=== PATIENT | male | born 1955 | race Caucasian/White ===

== ENCOUNTER 2016-10-25 12:19 | Emergency (ER) | payer OTHER ==
[~2016-10-25] VITALS: Ht 167.6 cm; Wt 95.1 kg
[~2016-10-25 12:19] MED LIST: ALBUAER19 INH; CTP1 PO; INSDGI SQ; PRED10TA PO; PRED20TA PO; SULF800T23 PO
[2016-10-25 12:30] VITALS: TEMP 37.2; Ht 167.6 cm; Wt 95.1 kg
[2016-10-25] MEDS ORDERED: SODIUM CHLORIDE 0.9% 250ML 250 ML IV STA (12:52)
[2016-10-25] MEDS ORDERED: ONDANSETRON INJ 2 MG/ML 2 ML VIAL IV STA (12:52)
--- NOTE | 2016-10-25 12:59 | EMERGENCY ROOM VISIT NOTE ---
History Report prepared by Drew: Sofie Goodson Under the Supervision of: Dr. Barrington Rader M.D. First contact with patient: 12:49 Chief Complaint: FLANK PAIN Stated Complaint: RIGHT KIDNEY - EXTREME PAIN History of Present Illness The patient is a 61 year old male who presents to the Emergency Room with complaints of persistent right flank pain that began three days ago. He currently rates his discomfort as a 10/10 in severity. 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 He additionally reports a history of previous kidney stones. The patient states that three days ago he developed right flank pain that radiates into his back and into his right abdomen that is worsened with movement. He denies any injury to the area. The patient states that he tried taking Tramadol without relief of his symptoms. He states that he has been experiencing nausea, but denies any vomiting. The patient denies any hematuria or other urinary symptoms. He reports a normal fluid intake. The patient denies any fever. He reports that he is currently on a new autoimmune medication for his Dick's. The patient additionally states that he is currently being tapered off Prednisone. Source of History: patient Onset: three days ago Position: other (right flank) Symptom Intensity: 10/10 Timing: other (persistent) Associated Symptoms: + nausea, + abdominal pain, + back pain, No fevers, No vomiting, No urinary symptoms Review of Systems See HPI for pertinent positives & negatives. A total of 10 systems reviewed and were otherwise negative. Past Medical & Surgical Medical Problems: (1) Cholecystectomy (2) Chronic hepatitis (3) Diabetes mellitus (4) Heart disease (5) Hernia repair (6) Kidney disease Family History Heart disease Hypertension Social History Smoking Status: Never Smoker Marital Status: Housing Status: lives with significant other Occupation Status: disabled Current/Historical Medications Scheduled Aspirin (Aspirin Chewable), 81 MG PO DAILY Atorvastatin (Lipitor), 40 MG PO DAILY Azathioprine (Imuran), 50 MG PO DAILY Carvedilol (Coreg), 25 MG PO BID Ergocalciferol (Vitamin D 53873 Unit), 50,000 UNIT PO WK Fluticasone Propionate (Fluticasone Propionate), 2 SPRAYS CAIO QPM Furosemide (Lasix), 40 MG PO DAILY Hydralazine HCl (Hydralazine HCl), 25 MG PO TID Insulin Aspart (Novolog), 6 UNITS SQ TIDM Insulin Glargine (Lantus), 25 UNITS SC HS Isosorbide Mononitrate Ext Rel (Imdur Ext Rel), 30 MG PO DAILY Nitroglycerin (Nitrostat), 0.4 MG UT PRN Omeprazole (Prilosec), 20 MG PO DAILY Potassium Chloride (Micro-K Ext Rel), 10 MEQ PO DAILY Prednisone (Prednisone), 7.5 MG PO DAILY Sertraline HCl (Sertraline HCl), 200 MG PO DAILY Spironolactone (Aldactone), 25 MG PO QAM Sulfa/Trimethoprim (Bactrim Ds 800MG/160MG), 1 TAB PO 3XWK Tolterodine Tartrate (Detrol), 2 MG PO Q12 Scheduled PRN Albuterol Hfa (Ventolin Hfa), 2 PUFFS INH Q4H PRN for SOB/Wheezing Lorazepam (Ativan), 1 MG PO QID PRN for Anxiety Meclizine HCl (Meclizine HCl), 12.5 MG PO BID PRN for Dizziness or Vertigo Oxycodone Ir (Roxicodone Ir), 1-2 TAB PO Q4H PRN for Pain Tramadol (Ultram), 50 MG PO Q6H PRN for Pain Allergies Coded Allergies: JESSICA Inhibitors (Verified Allergy, Severe, anaphylaxis, 10/25/16) BEE STING (Verified Allergy, Severe, anaphylaxis, 10/25/16) Hydrochlorothiazide (Verified Allergy, Intermediate, mouth swells, 10/25/16 ) Physical Exam Vital Signs Date Time Temp Pulse Resp B/P (MAP) Pulse Ox O2 Delivery O2 Flow Rate FiO2 10/25/16 14:32 81 20 159/85 95 10/25/16 12:30 37.2 96 20 178/102 96 Room Air Physical Exam GENERAL: Patient is in no acute distress. HEENT: No acute trauma, normocephalic atraumatic, mucous membranes moist, no nasal congestion, no scleral icterus. NECK: No stridor, no adenopathy, no meningismus, trachea is midline. LUNGS: Clear to auscultation bilaterally, no wheeze, no rhonchi, breath sounds equal. HEART: Without murmurs gallops or rubs, regular rate and rhythm. ABDOMEN: Soft, nontender, bowel sounds positive, no hernias, no peritonitis. BACK: No flank discomfort with percussion EXTREMITIES: No cyanosis or edema, full range of motion of all the joints without pain or difficulty, no signs for acute trauma. NEUROLOGIC: Oriented x 3, no acute motor or sensory deficits, no focal weakness. SKIN: No rash, no jaundice, no diaphoresis. Medical Decision & Procedures ER Provider Diagnostic Interpretation: CT results as stated below per my review and radiologist interpretation: ABD/PELVIS WITHOUT FOR STONE CLINICAL HISTORY: 61 years-old Male presenting with EVALUATE FLANK PAIN/HEMATURIA. TECHNIQUE: Multidetector CT of the abdomen and pelvis was performed without the use of intravenous contrast. IV contrast: None. A dose lowering technique was used consistent with the principles of ALARA (as low as reasonably achievable). COMPARISON: 03/27/2020. CT DOSE (mGy.cm): The estimated cumulative dose is 1596.87 mGy.cm. 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 Cholecystectomy clips. Vasectomy clips. Lung bases: Right ventricular lead noted. Mildly enlarged heart. Lung bases clear. No pericardial or pleural effusion. Liver: Normal morphology. Severe hepatic steatosis. Biliary: No intrahepatic or extrahepatic biliary ductal dilatation. Gallbladder surgically absent. Pancreas: Normal. Spleen: Normal. Adrenal glands: Normal. Kidneys and ureters: Nonobstructing 2 mm calculus in the interpolar region of the right kidney. No left nephrolithiasis. No hydronephrosis. Normal ureters. Bladder: Incompletely evaluated secondary to underdistention. Pelvic organs: Prostate enlargement likely secondary to benign prostatic hyperplasia. Bowel: Normal appendix. No bowel obstruction. Peritoneal cavity: No free fluid or intraperitoneal gas. Vasculature: Atherosclerosis of the normal caliber abdominal aorta. Lymph nodes: No enlarged lymph nodes in the abdomen or pelvis. Abdominal wall: Small fat-containing left inguinal hernia. Small fat-containing umbilical hernia. Musculoskeletal: Degenerative changes of the spine. IMPRESSION: 1. 2 mm nonobstructing right renal calculus. Nodular process. 2. Prostatomegaly. 3. Severe hepatic steatosis. Electronically signed by: William Garcia M.D. 10/25/2016 1:52 PM Dictated Date/Time: 10/25/2016 1:47 PM Laboratory Results 10/25/16 13:16 Red Blood Count 4.09, Mean Corpuscular Volume 90.0, Mean Corpuscular Hemoglobin 32.5, Mean Corpuscular Hemoglobin Concent 36.1, Mean Platelet Volume 9.5, Neutrophils (%) (Auto) 82.7, Lymphocytes (%) (Auto) 7.8, Monocytes (%) (Auto) 6.1, Eosinophils (%) (Auto) 2.6, Basophils (%) (Auto) 0.4, Neutrophils # (Auto) 6.49, Lymphocytes # (Auto) 0.61, Monocytes # (Auto) 0.48, Eosinophils # (Auto) 0.20, Basophils # (Auto) 0.03 10/25/16 13:05 Test 10/25/16 12:40 10/25/16 13:05 10/25/16 13:16 Urine Color YELLOW Urine Appearance CLEAR (CLEAR) Urine pH 5.5 (4.5-7.5) Urine Specific [place] 1.024 (1.000-1.030) Urine Protein 1+ (NEG) Urine Glucose (UA) 3+ (NEG) Urine Ketones NEG (NEG) Urine Occult Blood NEG (NEG) Urine Nitrite NEG (NEG) Urine Bilirubin NEG (NEG) Urine Urobilinogen NEG (NEG) Urine Leukocyte Esterase NEG (NEG) Urine WBC (Auto) 1-5 /hpf (0-5) Urine RBC (Auto) 0-4 /hpf (0-4) Urine Hyaline Casts (Auto) 5-10 /lpf (0-5) Urine Epithelial Cells (Auto) 20-30 /lpf (0-5) Urine Bacteria (Auto) NEG (NEG) Anion Gap 7.0 mmol/L (3-11) Est Creatinine Clear Calc Drug Dose 66.0 ml/min Estimated GFR () 69.2 Estimated GFR (Non- 59.7 BUN/Creatinine Ratio 13.2 (10-20) Calcium Level 9.4 mg/dl (8.5-10.1) Total Bilirubin 1.0 mg/dl (0.2-1) Aspartate Amino Transf (AST/SGOT) 18 U/L (15-37) Alanine Aminotransferase (ALT/SGPT) 31 U/L (12-78) Alkaline Phosphatase 60 U/L (45-117) Total Protein 7.0 gm/dl (6.4-8.2) Albumin 3.6 gm/dl (3.4-5.0) Globulin 3.4 gm/dl (2.5-4.0) Albumin/Globulin Ratio 1.1 (0.9-2) Lipase 198 U/L (73-393) White Blood Count 7.84 K/uL (4.8-10.8) Red Blood Count 4.09 M/uL (4.7-6.1) Hemoglobin 13.3 g/dL (14.0-18.0) Hematocrit 36.8 % (42-52) Mean Corpuscular Volume 90.0 fL (80-100) Mean Corpuscular Hemoglobin 32.5 pg (25-34) Mean Corpuscular Hemoglobin Concent 36.1 g/dl (32-36) Platelet Count 147 K/uL (130-400) Mean Platelet Volume 9.5 fL (7.4-10.4) Neutrophils (%) (Auto) 82.7 % Lymphocytes (%) (Auto) 7.8 % Monocytes (%) (Auto) 6.1 % Eosinophils (%) (Auto) 2.6 % Basophils (%) (Auto) 0.4 % Neutrophils # (Auto) 6.49 K/uL (1.4-6.5) Lymphocytes # (Auto) 0.61 K/uL (1.2-3.4) Monocytes # (Auto) 0.48 K/uL (0.11-0.59) Eosinophils # (Auto) 0.20 K/uL (0-0.5) Basophils # (Auto) 0.03 K/uL (0-0.2) RDW Standard Deviation 43.2 fL (36.4-46.3) RDW Coefficient of Variation 13.1 % (11.5-14.5) Immature Granulocyte % (Auto) 0.4 % Immature Granulocyte # (Auto) 0.03 K/uL (0.00-0.02) Laboratory results reviewed by me. Medications Administered Medications (Trade) Dose Ordered Sig/Francisco Javier Route Start Time Stop Time Status Last Admin Dose Admin Ondansetron HCl (Zofran Inj) 4 mg NOW STAT IV 10/25/16 12:52 10/25/16 12:56 DC 10/25/16 13:15 4 MG Morphine Sulfate (MoRPHine SULFATE INJ) 4 mg Q15M PRN IV 10/25/16 13:00 10/25/16 14:41 DC 10/25/16 13:16 4 MG Sodium Chloride 250 ml @ 999 mls/hr Q16M STAT IV 10/25/16 12:52 10/25/16 13:07 DC 10/25/16 13:15 999 MLS/HR ED Course 1249: The patient was evaluated in room A11B. A complete history and physical exam was performed. 1252: Ordered Sodium Chloride 250 ml @ 999 mls/hr IV, Zofran Inj 4 mg IV. 1300: Ordered Morphine Sulfate 4 mg IV. 1417: I reevaluated the patient and he is doing well. I discussed all the exam findings with him and I discussed the treatment plan. He verbalized complete understanding and agreement. He is ready to go home shortly. Medical Decision The patient is a 61 year old male who presents to the ED with complaints of right flank pain. Differential diagnoses considered include Renal colic, hydronephrosis, renal hematoma, renal failure, UTI, pyelonephritis, musculoskeletal pain. There is no leukocytosis or concerning anemia. No significant electrolyte abnormality or kidney failure. There is no hepatitis or pancreatitis. Urinalysis does not show infection or significant hematuria. Abdominal and pelvis CT shows a stone within the right kidney but no hydronephrosis or ureteral stone. No other pathology by CT that would explain his discomfort. The patient was given a small amount of IV saline, received IV morphine and IV Zofran, he feels improved. The patient's pain worsens with certain movements. I suspect the pain is musculoskeletal. He was reassured. He was given a small prescription of oxycodone for severe pain as tramadol has not helped. Heat to the area was suggested. If he worsens, he can return. [place] Drug Monitoring Program Search Results: patient reviewed within database, no issues identified Impression Primary Impression: Right flank pain Scribe Attestation The scribe's documentation has been prepared under my direction and personally reviewed by me in its entirety. I confirm that the note above accurately reflects all work, treatment, procedures, and medical decision making performed by me. Departure Information Dispostion Home / Self-Care Prescriptions Oxycodone Ir (Roxicodone Ir) 5 Mg Tab 1-2 TAB PO Q4H Y for Pain, #10 TAB Prov: Barrington Rader M.D. 10/25/16 Referrals Tan Dhaliwal MD (PCP) Forms HOME CARE DOCUMENTATION FORM, IMPORTANT VISIT INFORMATION Patient Instructions [facility] Additional Instructions tramadol for pain as before may use oxy ir 1 tab as needed for severe pain follow with sari howell for a recheck return if worsening or have fever or vomiting imaging and labs look ok today no stone passing by our testing no urine infection
[2016-10-25] MEDS ORDERED: MoRPHine SULFATE 4 MG/ML 1 ML CARP\\VIAL IV PRN (13:00)
[2016-10-25] MEDS ORDERED: VNTHFA/IN INH (13:01)
[2016-10-25] MEDS ORDERED: INSDGI SC (13:01)
[2016-10-25] MEDS ORDERED: NVLG SQ (13:07)
[2016-10-25] MEDS ORDERED: PRD/1 PO (13:07)
[2016-10-25] MEDS ORDERED: SULF800T23 PO (13:11)
[2016-10-25] MEDS ORDERED: TRAM-10 PO (13:11)
[2016-10-25] MEDS ORDERED: ERGO500037 PO (13:11)
[2016-10-25] MEDS ORDERED: PRLSR20 PO (13:11)
[2016-10-25] MEDS ORDERED: AZAT50TA17 PO (13:11)
[2016-10-25] MEDS ORDERED: PRED-301 PO (13:11)
[2016-10-25] MEDS ORDERED: DTR2 PO (13:11)
[2016-10-25 13:13] LABS: URINE APPEARANCE CLEAR (CLEAR); URINE BILIRUBIN NEG (NEG); URINE COLOR YELLOW; URINE EPITHELIAL CELL AUTO 20-30 /lpf (0-5); URINE NITRITE NEG (NEG); URINE PH 5.5 (4.5-7.5); URINE SPECIFIC GRAVITY 1.024 (1.000-1.030); UROBILINOGEN NEG (NEG); ZZUR CULT IF INDIC CLEAN CATCH NO
[2016-10-25 13:15] LABS: MANUAL MICROSCOPIC REQUIRED? NO; REVIEW REQ? NO
[2016-10-25 13:27] LABS: BASO % 0.4 %; BASO ABS # 0.03 K/uL (0-0.2); COMPLETE YES; EOS % 2.6 %; HEMATOCRIT 36.8 % (42-52); IG% 0.4 %; LYMPH % 7.8 %; LYMPH ABS # 0.61 K/uL (1.2-3.4); MEAN CORPUSCULAR HEMOGLOBIN 32.5 pg (25-34); MEAN CORPUSCULAR HGB CONC 36.1 g/dl (32-36); MEAN PLATELET VOLUME 9.5 fL (7.4-10.4); MONO % 6.1 %; NEUT % 82.7 %; PLATELET COUNT 147 K/uL (130-400); RED BLOOD COUNT 4.09 M/uL (4.7-6.1); WHITE BLOOD COUNT 7.84 K/uL (4.8-10.8)
[2016-10-25 13:41] LABS: BUN/CREATININE RATIO 13.2 (10-20); CALCIUM 9.4 mg/dl (8.5-10.1); CREATININE 1.3 mg/dl (0.60-1.40); POTASSIUM 3.1 mmol/L (3.5-5.1)
[2016-10-25 13:44] LABS: ALB/GLOB RATIO 1.1 (0.9-2)
--- NOTE | 2016-10-25 13:53 | DIAGNOSTIC IMAGING REPORT ---
ABD/PELVIS WITHOUT FOR STONE CLINICAL HISTORY: 61 years-old Male presenting with EVALUATE FLANK PAIN/HEMATURIA. TECHNIQUE: Multidetector CT of the abdomen and pelvis was performed without the use of intravenous contrast. IV contrast: None. A dose lowering technique was used consistent with the principles of ALARA (as low as reasonably achievable). COMPARISON: 03/27/2020. CT DOSE (mGy.cm): The estimated cumulative dose is 1596.87 mGy.cm. 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 Cholecystectomy clips. Vasectomy clips. Lung bases: Right ventricular lead noted. Mildly enlarged heart. Lung bases clear. No pericardial or pleural effusion. Liver: Normal morphology. Severe hepatic steatosis. Biliary: No intrahepatic or extrahepatic biliary ductal dilatation. Gallbladder surgically absent. Pancreas: Normal. Spleen: Normal. Adrenal glands: Normal. Kidneys and ureters: Nonobstructing 2 mm calculus in the interpolar region of the right kidney. No left nephrolithiasis. No hydronephrosis. Normal ureters. Bladder: Incompletely evaluated secondary to underdistention. Pelvic organs: Prostate enlargement likely secondary to benign prostatic hyperplasia. Bowel: Normal appendix. No bowel obstruction. Peritoneal cavity: No free fluid or intraperitoneal gas. Vasculature: Atherosclerosis of the normal caliber abdominal aorta. Lymph nodes: No enlarged lymph nodes in the abdomen or pelvis. Abdominal wall: Small fat-containing left inguinal hernia. Small fat-containing umbilical hernia. Musculoskeletal: Degenerative changes of the spine. IMPRESSION: 1. 2 mm nonobstructing right renal calculus. Nodular process. 2. Prostatomegaly. 3. Severe hepatic steatosis. Electronically signed by: William Garcia M.D. 10/25/2016 1:52 PM Dictated Date/Time: 10/25/2016 1:47 PM
[2016-10-25] MEDS ORDERED: OXYC1TAB3 PO (14:23)
[2016-10-25 14:32] VITALS: BP 159/85; PULSE 81; O2SAT 95
[2016-10-25] MEDS ORDERED: NTRGSL/4 UT (15:00)
[2016-10-25] MEDS ORDERED: APR/25 PO (17:04)
[2016-10-25] MEDS ORDERED: POTA10CA28 PO (17:04)
[2016-10-25] MEDS ORDERED: ATV/1 PO (17:04)
[2016-10-25] MEDS ORDERED: FRS/40 PO (19:24)
[2016-10-25] MEDS ORDERED: ATOR-24 PO (19:24)
[2016-10-25] MEDS ORDERED: SPIR25TA PO (19:24)
[2016-10-25] MEDS ORDERED: ZLF/100 PO (19:24)
[2016-10-25] MEDS ORDERED: ISOS30TA35 PO (19:36)
[2016-10-25] MEDS ORDERED: FLNIN/ NAE (19:36)
[2016-10-25] MEDS ORDERED: MECL1TAB40 PO (19:36)
[2016-10-25] MEDS ORDERED: ASPCH81X PO (22:32)
[2016-10-25] MEDS ORDERED: CARV25TA2 PO (22:33)
== END 2016-10-25 14:34 | disposition home or self-care (01) ==
LOC: C.EDB 12:21 → C.EDA 14:34
DX: R10.9 Unspecified abdominal pain (principal); M31.31 Wegener's granulomatosis with renal involvement; Z87.442 Personal history of urinary calculi; E11.9 Type 2 diabetes mellitus without complications; I51.9 Heart disease, unspecified; K73.9 Chronic hepatitis, unspecified; Z82.49 Family history of ischemic heart disease and other diseases of the circulatory system; Z79.82 Long term (current) use of aspirin; Z79.4 Long term (current) use of insulin; Z79.899 Other long term (current) drug therapy

== ENCOUNTER 2021-02-07 17:02 | Inpatient (IN) ==
--- NOTE | 2021-02-07 17:21 | Emergency Department Note ---
Impression & Plan SOB (shortness of breath), WARD (dyspnea on exertion), Abnormal echocardiogram ED Provider Note NAME: LLOYD ARNETT AGE: 65 SEX: M : 1955 ARRIVES VIA: Ambulance INFORMANT: Patient, ED PROVIDER(S): Artuor Ortega DO CHIEF COMPLAINT: Shortness of breath HPI: The patient is a 65-year-old male who was sent to the emergency department for an evaluation of difficulty breathing. The patient states that he has a history of difficulty breathing in the past. He said chronic difficulty breathing over the last few years. The patient was seen at the internal medicine clinic today because of his ongoing shortness of breath. He has a history of systolic heart failure diabetes as well as sarcoid and hypertension. He has had a worsening dyspnea on exertion for at least the last 2 to 3 months. The patient he thinks it started to worsen over the last few weeks as well. He is not vaccinated against Covid but denies have any fever or cough. He states he is been compliant with his usual outpatient medications. The patient states that he had an echocardiogram done while he was over the clinic and it was found to have a decrease in his ejection fraction compared to baseline. For this reason he was sent to the emergency department by ambulance for further evaluation. The patient also complains of chest pain. He has noticed some lower extremity swelling. He denies having any diarrhea or nausea. ROS: See above HPI for pertinent positives & negatives. A total of 10 systems reviewed and were otherwise negative. PAST MEDICAL HISTORY: See Below PAST SURGICAL HISTORY: See Below FAMILY HISTORY: See Below SOCIAL HISTORY: See Below HOME MEDICATIONS: See Below ALLERGIES: See Below VITALS: See Below PHYSICAL EXAMINATION: GENERAL: Patient is awake alert in no acute distress patient is resting comfortably and showing no signs of anxiety EYES: The conjunctivae are clear. The pupils are round and reactive. EARS, NOSE, MOUTH AND THROAT: The nose is without any evidence of any deformity. Mucous membranes are moist. Tongue is midline. NECK: The neck is nontender and supple. RESPIRATORY: Diminished breath sounds are noted throughout. There is no wheezing but there was some rales and conversational dyspnea. CARDIOVASCULAR: Regular rate and rhythm noted there no murmurs rubs or gallops normal S1 normal S2. GASTROINTESTINAL: The abdomen is soft. Abdomen is nontender. MUSCULOSKELETAL/EXTREMITIES: There is no evidence of gross deformity full range of motion is noted in the hips and shoulders. SKIN: Pedal edema was noted bilaterally. NEUROLOGIC: Patient is awake alert and oriented x3 MEDICAL DECISION MAKING: The patient is a 65-year-old male who presented to emergency department for an evaluation of difficulty breathing. The patient has a history of CHF because of nonischemic cardiomyopathy but also has diabetes and obstructive sleep apnea. The patient was seen at his primary care physician's office and was found to have significant difficulty breathing. He had an echocardiogram which showed a decrease in his ejection fraction. This was not clear as to the cause but it was felt to be possibly due to ischemia. The patient was sent to the emergency department for further evaluation. I discussed case with the on-call [facility]. They will evaluate the patient in the emergency department for further management and disposition. Triage Nursing notes reviewed. Prior medical records reviewed Vital Signs: reviewed and remarkable for elevated blood pressure. Differential diagnosis: Reactive airway disease, pneumonia, pneumothorax, COPD, CHF, infections, cardiac ischemia, pulmonary embolism, musculoskeletal, gastrointestinal, as well as other pathologies. ER treatment provided: See below Diagnostics interpreted by me: ECG: EKG was obtained in the emergency department. My interpretation is normal sinus rhythm at 81 bpm. There is no ectopy. Nonspecific lateral ST segment ab normalities with high lateral T wave versions were noted. This was compared to a tracing from January [id number]. No changes were noted. Cardiac Monitoring: An order was placed for continuous cardiac monitoring. The monitor shows a rate of 90 bpm with sinus rhythm. Laboratory studies: As stated above and show below. Imaging studies: See below Consultation(s): I discussed this case with Mariela who was full fashioned garment knitter for the [facility]. 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 Surgical History History of bronchoscopy History of cardiac cath 2015 History of cholecystectomy Family History Sister Cancer esophagus Social History Smoking Status: Never smoker Hx Alcohol Use: No Hx Substance Use: No Preferred Language: Bulgarian Communication Ability: Effective Four H Agent Required: No Beliefs That Will Affect Care: None Current Living Situation: Spouse and Family Feels Safe at Home: Yes Assistive Devices: None Allergies Allergies Allergy/AdvReac Type Severity Reaction Status Date / Time JESSICA Inhibitors Allergy Severe anaphylaxis Verified 02/07/21 19:00 bee venom protein (honey bee) Allergy Severe anaphylaxis Verified 02/07/21 19:00 hydrochlorothiazide Allergy Intermediate mouth Verified 02/07/21 19:00 swells doxazosin [From Cardura] AdvReac MUSCLE Verified 02/07/21 19:01 ACHES, DIZZY, CHEST PAIN empagliflozin AdvReac DEHYDRATION Verified 02/07/21 19:02 [From Solmentum] Home Meds Home Medications Medication Instructions Recorded Confirmed azathioprine 50 mg tablet 50 mg PO BID 01/21/18 02/07/21 carvedilol 25 mg tablet 25 mg PO BID 01/21/18 02/07/21 hydralazine 50 mg tablet 50 mg PO TID 01/21/18 02/07/21 lorazepam 1 mg tablet 1 mg PO DAILY PRN 01/21/18 02/07/21 nitroglycerin 0.4 mg sublingual 0.4 mg SUBLINGUAL DIRECTED PRN 01/21/18 02/07/21 tablet (Nitrostat) sertraline 100 mg tablet 200 mg PO DAILY 01/21/18 02/07/21 sulfamethoxazole 800 1 tab PO 3XWK 01/21/18 02/07/21 mg-trimethoprim 160 mg tablet aspirin 81 mg tablet,delayed 81 mg PO QPM 01/23/18 02/07/21 release meclizine 12.5 mg tablet 12.5 mg PO BID PRN 01/23/18 02/07/21 omeprazole 20 mg capsule,delayed 20 mg PO BID 01/23/18 02/07/21 release aspirin 81 mg tablet 324 mg PO .TODAY 02/07/21 02/07/21 buspirone 15 mg tablet 15 mg PO DAILY PRN 02/07/21 02/07/21 insulin human U-100 NPH-regulr 44 unit SUBCUT .QSUPPER 02/07/21 02/07/21 70-30 mix 100 unit/mL subcutaneous susp (Novolin 70/30 U-100 Insulin) insulin human U-100 NPH-regulr 50 unit SUBCUT QAM 02/07/21 02/07/21 70-30 mix 100 unit/mL subcutaneous susp (Novolin 70/30 U-100 Insulin) nitroglycerin 0.2 mg/hr 1 patch TRANSDERMAL DAILY 02/07/21 02/07/21 transdermal 24 hour patch torsemide 20 mg tablet 20 mg PO DAILY 02/07/21 02/07/21 Results & Data (ED) Vital Signs Vital Signs - 24 hr 02/07/21 17:13 Temperature 36.9 C Temperature Source Oral Pulse Rate 85 Pulse Rate [Apical] 85 Respiratory Rate 20 Respiratory Effort / Characteristics Non-Labored Spontaneous Respiratory Depth Normal Respiratory Pattern Regular Blood Pressure 171/90 H Blood Pressure [Right Arm] 171/90 H Blood Pressure Mean 117 Blood Pressure Mean [Right Arm] 117 Pulse Oximetry 98 Oxygen Delivery Method Room Air Sepsis Recent Fever Within 48 Hours No Sepsis New/Unexplained Change in Mental Status No Sepsis Action Taken by Nursing No Action Required Home Medications Current Medication List: was personally reviewed by me Laboratory Data Attestation: I reviewed the patient's lab results. Result diagrams: 02/07/21 17:16 02/07/21 17:16 Lab Results 02/07/21 02/07/21 02/07/21 Range/Units 17:16 17:16 17:16 WBC 8.58 (4.8-10.8) K/uL RBC 4.77 (4.7-6.1) M/uL Hgb 13.9 L (14.0-18.0) g/dL Hct 40.6 L (42-52) % MCV 85.1 (80-100) fL MCH 29.1 (25-34) pg MCHC 34.2 (32-36) g/dL RDW Std Deviation 43.1 (36.4-46.3) fL RDW Coeff of Salud 13.9 (11.5-14.5) % Plt Count 209 (130-400) K/uL MPV 10.7 H (7.4-10.4) fL Immature Gran % (Auto) 0.1 % Neut % (Auto) 76.9 % Lymph % (Auto) 14.2 % [place] % (Auto) 6.5 % Eos % (Auto) 2.0 % Baso % (Auto) 0.3 % Neut # (Auto) 6.59 H (1.4-6.5) K/uL Lymph # (Auto) 1.22 (1.2-3.4) K/uL [place] # (Auto) 0.56 (0.11-0.59) K/uL Eos # (Auto) 0.17 (0-0.5) K/uL Baso # (Auto) 0.03 (0-0.2) K/uL Immature Gran # (Auto) 0.01 (0.00-0.02) K/uL PT 9.9 (9.0-12.0) Seconds INR 1.0 (0.9-1.1) APTT 24.7 (21.0-31.0) Seconds PTT Ratio 0.9 VBG pH (7.36-7.41) VBG pCO2 (38-50) mmHg VBG pO2 mmHg VBG HCO3 mmol/L VBG O2 Saturation % VBG Base Excess mEq/L Barometric Pressure mm/Hg Sodium 138 (136-145) mmol/L Potassium 3.2 L (3.5-5.1) mmol/L Chloride 107 (98-107) mmol/L Carbon Dioxide 22 (21-32) mmol/L Anion Gap 9.0 (3-11) BUN 22 H (7-18) mg/dl Creatinine 1.46 H (0.6-1.4) mg/dl Est Cr Clr Drug Dosing 59.9 ml/min Est GFR ( Amer) 58.5 ml/min Est GFR (Non-Af Amer) 50.5 ml/min BUN/Creatinine Ratio 14.8 (10-20) Glucose 204 H (70-99) mg/dl Calcium 9.3 (8.5-10.1) mg/dl Magnesium 2.1 (1.8-2.4) mg/dl Total Bilirubin 0.5 (0.2-1) mg/dl AST 23 (15-37) U/L ALT 34 (12-78) Alkaline Phosphatase 76 (45-117) U/L Troponin I 0.027 (0-0.045) ng/ml NT-Pro-B Natriuret Pep 2315 H (0-900) pg/ml Total Protein 7.2 (6.4-8.2) gm/dl Albumin 3.5 (3.4-5.0) gm/dl Globulin 3.7 (2.5-4.0) gm/dl Albumin/Globulin Ratio 0.9 (0.9-2) Specimen Hemolysis SARS-CoV-2, RNA, NAAT (NEGATIVE) 02/07/21 02/07/21 Range/Units 17:16 18:32 WBC (4.8-10.8) K/uL RBC (4.7-6.1) M/uL Hgb (14.0-18.0) g/dL Hct (42-52) % MCV (80-100) fL MCH (25-34) pg MCHC (32-36) g/dL RDW Std Deviation (36.4-46.3) fL RDW Coeff of Salud (11.5-14.5) % Plt Count (130-400) K/uL MPV (7.4-10.4) fL Immature Gran % (Auto) % Neut % (Auto) % Lymph % (Auto) % [place] % (Auto) % Eos % (Auto) % Baso % (Auto) % Neut # (Auto) (1.4-6.5) K/uL Lymph # (Auto) (1.2-3.4) K/uL [place] # (Auto) (0.11-0.59) K/uL Eos # (Auto) (0-0.5) K/uL Baso # (Auto) (0-0.2) K/uL Immature Gran # (Auto) (0.00-0.02) K/uL PT (9.0-12.0) Seconds INR (0.9-1.1) APTT (21.0-31.0) Seconds PTT Ratio VBG pH 7.57 H (7.36-7.41) VBG pCO2 26 L (38-50) mmHg VBG pO2 37 mmHg VBG HCO3 23 mmol/L VBG O2 Saturation 77.1 % VBG Base Excess 2.1 mEq/L Barometric Pressure 729.7 mm/Hg Sodium (136-145) mmol/L Potassium (3.5-5.1) mmol/L Chloride (98-107) mmol/L Carbon Dioxide (21-32) mmol/L Anion Gap (3-11) BUN (7-18) mg/dl Creatinine (0.6-1.4) mg/dl Est Cr Clr Drug Dosing ml/min Est GFR ( Amer) ml/min Est GFR (Non-Af Amer) ml/min BUN/Creatinine Ratio (10-20) Glucose (70-99) mg/dl Calcium (8.5-10.1) mg/dl Magnesium (1.8-2.4) mg/dl Total Bilirubin (0.2-1) mg/dl AST (15-37) U/L ALT (12-78) Alkaline Phosphatase (45-117) U/L Troponin I (0-0.045) ng/ml NT-Pro-B Natriuret Pep (0-900) pg/ml Total Protein (6.4-8.2) gm/dl Albumin (3.4-5.0) gm/dl Globulin (2.5-4.0) gm/dl Albumin/Globulin Ratio (0.9-2) Specimen Hemolysis SARS-CoV-2, RNA, NAAT NEGATIVE (NEGATIVE) Administered Medications Discontinued Medications Furosemide (Furosemide Inj 20 Mg/2 Ml Vial) 20 mg IV ONE STA Stop: 02/07/21 20:24 Last Admin: 02/07/21 21:14 Dose: 20 mg Documented by: [id number] Furosemide (Furosemide 40 Mg/4 Ml Vial) Confirm Administered Dose 40 mg IV .STK- MED ONE Stop: 02/07/21 21:13 Last Admin: 02/07/21 21:15 Dose: Not Given Documented by: [id number] Hydralazine HCl (Hydralazine Tab 50 Mg Tab) 50 mg PO ONE ONE Stop: 02/07/21 19:58 Last Admin: 02/07/21 21:14 Dose: 50 mg Documented by: [id number] Potassium Chloride (Potassium Chloride Crtab 20 Meq Tabcr) 40 meq PO NOW STA Stop: 02/07/21 20:32 Last Admin: 02/07/21 21:14 Dose: 40 meq Documented by: [id number] Trimethoprim/Sulfamethoxazole (Sulfamethoxazole/Trimethoprim Ds 800/160mg Tab) 1 tab PO NOW STA Stop: 02/07/21 20:42 Last Admin: 02/07/21 21:14 Dose: 1 tab Documented by: [id number] Imaging Data Radiologist's Impression: Chest X-Ray 02/07/21 17:10 XR chest 1V portable CLINICAL HISTORY: Dyspnea TECHNIQUE: Single frontal radiograph of the chest was obtained. Comparison: Comparison is made to chest one view 01/20/2018 FINDINGS: Single lead pacemaker defibrillator is unchanged. Cardiomegaly is noted. The lungs are clear. No evidence of pleural effusion or pneumothorax. IMPRESSION: Stable cardiomegaly. No acute abnormality. ACT 112: Negative or not required by law. Electronically signed by: Kyle Becerra M.D. 02/07/2021 6:00 PM Discharge Plan Visit Data Chief Complaint: Shortness of Breath/Dyspnea Stated Complaint: SOB ED Provider: Arturo Ortega Discharge Problem: SOB (shortness of breath), WARD (dyspnea on exertion), Abnormal echocardiogram Patient Disposition: Admitted As Inpatient Discharge Instructions Interventions: ED Discharge Assessment Last Done: 02/07/21 20:45
[2021-02-07 17:32] LABS: Basophils # (auto) 0.03 K/uL (0-0.2); Basophils % (auto) 0.3 %; Eosinophils # (auto) 0.17 K/uL (0-0.5); Hematocrit (blood only) 40.6 % (42-52); Hemoglobin 13.9 g/dL (14.0-18.0); Immature Granulocytes # (auto) 0.01 K/uL (0.00-0.02); Immature Granulocytes % (auto) 0.1 %; Lymphocytes # (auto) 1.22 K/uL (1.2-3.4); Lymphocytes % (auto) 14.2 %; Mean Corpuscular Hemoglobin 29.1 pg (25-34); Mean Corpuscular Hgb Conc 34.2 g/dL (32-36); Mean Corpuscular Volume 85.1 fL (80-100); Mean Platelet Volume 10.7 fL (7.4-10.4); Monocytes # (auto) 0.56 K/uL (0.11-0.59); Monocytes % (auto) 6.5 %; Neutrophils # (auto) 6.59 K/uL (1.4-6.5); Neutrophils % (auto) 76.9 %; Platelet Count 209 K/uL (130-400); RDW Coefficient of Variation 13.9 % (11.5-14.5); RDW Standard Deviation 43.1 fL (36.4-46.3); Red Blood Count 4.77 M/uL (4.7-6.1); White Blood Count 8.58 K/uL (4.8-10.8)
[2021-02-07 17:33] LABS: Base Excess VBG 2.1 mEq/L; Oxygen Saturation VBG 77.1 %; pH VBG 7.57 (7.36-7.41)
[2021-02-07 17:42] LABS: Partial Thromboplastin Ratio 0.9; Partial Thromboplastin Time 24.7 Seconds (21.0-31.0); Prothrombin Time 9.9 Seconds (9.0-12.0)
[2021-02-07 17:52] LABS: Albumin Level 3.5 gm/dl (3.4-5.0); BUN Creatinine Ratio 14.8 (10-20); Calcium 9.3 mg/dl (8.5-10.1); Creatinine Clr Calc Pharmacy 59.9 ml/min; Est GFR (African American) 58.5 ml/min; Est GFR (Non-African American) 50.5 ml/min; Magnesium 2.1 mg/dl (1.8-2.4); Potassium 3.2 mmol/L (3.5-5.1)
--- NOTE | 2021-02-07 18:02 | XRay Report ---
XR chest 1V portable CLINICAL HISTORY: Dyspnea TECHNIQUE: Single frontal radiograph of the chest was obtained. Comparison: Comparison is made to chest one view 01/20/2018 FINDINGS: Single lead pacemaker defibrillator is unchanged. Cardiomegaly is noted. The lungs are clear. No evid ence of pleural effusion or pneumothorax. IMPRESSION: Stable cardiomegaly. No acute abnormality. ACT 112: Negative or not required by law. Electronically signed by: Kyle Becerra M.D. 02/07/2021 6:00 PM
[2021-02-07 18:24] LABS: Albumin Globulin Ratio 0.9 (0.9-2); Bilirubin,Total 0.5 mg/dl (0.2-1); Globulin 3.7 gm/dl (2.5-4.0); Total Protein 7.2 gm/dl (6.4-8.2); Troponin I 0.027 ng/ml (0-0.045)
--- NOTE | 2021-02-07 19:25 | History & Physical Report ---
Date of Service February 07, 2021 Assessment & Plan (1) Exertional shortness of breath: (2) Nonischemic cardiomyopathy: Plan: Patient is 65-year-old male with PMH sarcoidosis, granulomatosis with polyangiitis, chronic systolic CHF, EF 30%, s/p ICD, paroxysmal V. tach, DM II, HTN, GARDENIA, obesity, depression, anxiety presented to ER for exertional shortness of breath and chest tightness. Patient reports chronic exertional shortness of breath at baseline. He reports for the past month has had increased exertional shortness of breath. Patient states approximately 1 month ago he was started on Cardura and he feels that his symptoms increased at that time. Patient also reports approximately 1-3 times a month he will have sharp chest pain which resolves at rest. He states since starting the Cardura he felt he was having more frequent chest tightness and also having aching of lower legs. He also reports chronic dizziness with standing at baseline however felt like that was also increased over the past month. His Cardura has since been discontinued and he reports decreased dizziness, and resolution of chest tightness and aching of lower legs. He was seen at PCPs office as well as cardiology office today and was noted to have shortness of breath without hypoxia. Since being in ER patient has been sitting and denies any increase shortness of breath and feels like his breathing is at baseline. Denies any chest pain or tightness. Denies any increased lower extremity edema or change in weight He reports will have rare nonproductive cough at baseline and denies any increased cough or any hemoptysis. Denies fever/chills, diaphoresis, N/V/D/C, OLIVERA, syncope, vision changes, neck pain, orthopnea, palpitations, sore throat, choking, otalgia, rhinorrhea, abdominal pain, paresthesias, weakness, extremity weakness, extremity edema, rashes, urinary symptoms. In ER pt afebrile, BP 171/90, P: 85, R: 20, 98% on RA. Initial troponin 0.027. CXR without acute changes. Negative COVID EKG changes in clinic with new t wave inversion anterolateral lead and had outpatient echo with preliminary reading diffuse hypokinesis that was similar to prior and possible inferior wall hypokinesis DDx: angina, ACS, lung etiology. Does not appear volume overloaded at this time Repeat EKG in am Will trend troponin lipid panel, continue statin Continue aspirin, carvedilol, nitro patch, Cardiology consult May need to consider CT chest NPO midnight Start Heparin Give one dose lasix IV and monitor I's &O's Continue torsemide CBC, BMP in am (3) Hypokalemia: Plan: K: 3.2. Magnesium: 2.1 Replace and monitor (4) HTN (hypertension): Plan: Continue carvedilol, hydralazine (5) Diabetes mellitus, type II: Plan: A1c: 8.3 in 01/12/2021 Hold home insulin Basal bolus insulin per protocol (6) Granulomatosis with polyangiitis: Plan: History granulomatosis with polyangiitis, History sarcoidosis Continue Imuran and Bactrim mon, wed, fri If cardiac work-up unremarkable, may need to consider CT chest (7) GARDENIA (obstructive sleep apnea): Plan: CPAP with 2L O2 HS (8) Depression with anxiety: Plan: Continue sertraline DVT Prophylaxis On IV Heparin Full Code as per discussion with pt Follows with Dr Dhaliwal for routine care Pt was seen and care coordinated with Dr Orozco. See addendum History of Present Illness Chief Complaint: SOB Primary Care Provider: Tan Dhaliwal MD Patient is 65-year-old male with PMH sarcoidosis, granulomatosis with polyangiitis, chronic systolic CHF, EF 30%, s/p ICD, paroxysmal V. tach, DM II, HTN, GARDENIA, obesity, depression, anxiety presented to ER for shortness of breath. Patient reports chronic exertional shortness of breath at baseline. He reports for the past month has had increased exertional shortness of breath. Patient states approximately 1 month ago he was started on Cardura and he feels that his symptoms increased at that time. Patient also reports approximately 1-3 times a month he will have sharp chest pain which resolves at rest. He states since starting the Cardura he felt he was having more frequent chest tightness and also having aching of lower legs. He also reports chronic dizziness with standing at baseline however felt like that was also increased over the past month. His Cardura has since been discontinued and he reports decreased dizziness, and resolution of chest tightness and aching of lower legs. He was seen at PCPs office as well as cardiology office today and was noted to have shortness of breath without hypoxia. At cardiology office he had EKG with reported NSR with new anterolateral t wave inversions and echo with preliminary reading diffuse hypokinesis that was similar to prior and possible inferior wall hypokinesis. Since being in ER patient has been sitting and denies any increase shortness of breath and feels like his breathing is at baseline. Denies any chest pain or tightness. Denies any increased lower extremity edema or change in weight He reports will have rare nonproductive cough at baseline and denies any increased cough or any hemoptysis. Denies fever/chills, diaphoresis, N/V/D/C, OLIVERA, syncope, vision changes, neck pain, orthopnea, palpitations, sore throat, choking, otalgia, rhinorrhea, abdominal pain, paresthesias, weakness, extremity weakness, extremity edema, rashes, urinary symptoms. In ER pt afebrile, BP 171/90, P: 85, R: 20, 98% on RA. Initial troponin 0.027. CXR without acute changes. Negative COVID Allergies Allergy/AdvReac Type Severity Reaction Status Date / Time JESSICA Inhibitors Allergy Severe anaphylaxis Verified 02/07/21 19:00 bee venom protein (honey bee) Allergy Severe anaphylaxis Verified 02/07/21 19:00 hydrochlorothiazide Allergy Intermediate mouth Verified 02/07/21 19:00 swells doxazosin [From Cardura] AdvReac MUSCLE Verified 02/07/21 19:01 ACHES, DIZZY, CHEST PAIN empagliflozin AdvReac DEHYDRATION Verified 02/07/21 19:02 [From Jardiance] Home Medications Medication Instructions Recorded Confirmed Type azathioprine 50 mg tablet 50 mg PO BID 01/21/18 02/07/21 History carvedilol 25 mg tablet 25 mg PO BID 01/21/18 02/07/21 History hydralazine 50 mg tablet 50 mg PO TID 01/21/18 02/07/21 History lorazepam 1 mg tablet 1 mg PO DAILY PRN 01/21/18 02/07/21 History nitroglycerin 0.4 mg sublingual 0.4 mg SUBLINGUAL DIRECTED PRN 01/21/18 02/07/21 History tablet (Nitrostat) sertraline 100 mg tablet 200 mg PO DAILY 01/21/18 02/07/21 History sulfamethoxazole 800 1 tab PO 3XWK 01/21/18 02/07/21 History mg-trimethoprim 160 mg tablet aspirin 81 mg tablet,delayed 81 mg PO QPM 01/23/18 02/07/21 History release meclizine 12.5 mg tablet 12.5 mg PO BID PRN 01/23/18 02/07/21 History omeprazole 20 mg capsule,delayed 20 mg PO BID 01/23/18 02/07/21 History release aspirin 81 mg tablet 324 mg PO .TODAY 02/07/21 02/07/21 History buspirone 15 mg tablet 15 mg PO DAILY PRN 02/07/21 02/07/21 History insulin human U-100 NPH-regulr 44 unit SUBCUT .QSUPPER 02/07/21 02/07/21 History 70-30 mix 100 unit/mL subcutaneous susp (Novolin 70/30 U-100 Insulin) insulin human U-100 NPH-regulr 50 unit SUBCUT QAM 02/07/21 02/07/21 History 70-30 mix 100 unit/mL subcutaneous susp (Novolin 70/30 U-100 Insulin) nitroglycerin 0.2 mg/hr 1 patch TRANSDERMAL DAILY 02/07/21 02/07/21 History transdermal 24 hour patch torsemide 20 mg tablet 20 mg PO DAILY 02/07/21 02/07/21 History 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 Surgical History History of bronchoscopy History of cardiac cath 2015 History of cholecystectomy Family History Sister Cancer esophagus Social History Smoking Status: Never smoker Hx Alcohol Use: No Hx Substance Use: No Preferred Language: Tamazight Communication Ability: Effective Ends Breakage Clerk Required: No Beliefs That Will Affect Care: None Current Living Situation: Spouse Current Living Situation Comment: 2 story home with Feels Safe at Home: Yes Safety Concerns: Feels Safe At This Time Assistive Devices: Oxygen - at Night Review of Systems Review of Systems: All systems reviewed & are unremarkable except as noted in HPI & below Physical Exam Physical Exam: General: no acute distress, obese Head: normocephalic, atraumatic Eyes: PERRL, EOM's intact, conjunctiva non-injected, anicteric ENT: normal inspection external ears, nose, mucous membranes moist Neck: supple, trachea midline Lungs: clear, no respiratory distress, no wheezing/rhonchi/rales CV: RRR, no murmur, trace pretibial edema Abd: normal BS, soft, non-tender Ext: no cyanosis, no calf tenderness Neuro: A&O x 3, no focal deficits noted, normal affect Skin: warm, dry Results & Data Results & Data ([facility]) Vital Signs (Past 12 Hours) Vital Signs Temp Pulse Pulse Resp BP BP Pulse Ox 02/07/21 17:13 36.9 C 85 85 20 171/90 H 171/90 H 98 Laboratory Results Short CBC 02/07/21 Range/Units 17:16 WBC 8.58 (4.8-10.8) K/uL Hgb 13.9 L (14.0-18.0) g/dL Hct 40.6 L (42-52) % Plt Count 209 (130-400) K/uL BMP 02/07/21 17:16 Sodium 138 Potassium 3.2 L Chloride 107 Carbon Dioxide 22 BUN 22 H Creatinine 1.46 H Glucose 204 H Calcium 9.3 Cardiac Enzymes 02/07/21 Range/Units 17:16 Troponin I 0.027 (0-0.045) ng/ml Liver Function 02/07/21 Range/Units 17:16 Total Bilirubin 0.5 (0.2-1) mg/dl AST 23 (15-37) U/L ALT 34 (12-78) Alkaline Phosphatase 76 (45-117) U/L Albumin 3.5 (3.4-5.0) gm/dl Urine 02/07/21 Range/Units 19:37 Urine Color Yellow Urine Appearance Clear (Clear) Urine pH 5.0 (4.5-7.5) Ur Specific Kennan 1.013 (1.000-1.030) Urine Protein Negative (Negative) Urine Glucose (UA) Negative (Negative) Diagnostic Findings Chest X-Ray 02/07/21 17:10 XR chest 1V portable CLINICAL HISTORY: Dyspnea TECHNIQUE: Single frontal radiograph of the chest was obtained. Comparison: Comparison is made to chest one view 01/20/2018 FINDINGS: Single lead pacemaker defibrillator is unchanged. Cardiomegaly is noted. The lungs are clear. No evidence of pleural effusion or pneumothorax. IMPRESSION: Stable cardiomegaly. No acute abnormality. ACT 112: Negative or not required by law. Electronically signed by: Kyle Becerra M.D. 02/07/2021 6:00 PM Supervising Physician Co-Signing Physician Notes Care coordinated with Saira Osman PA-C. Agree with above note. Patient seen and examined. Please refer to her notes for full details. Vital signs reviewed. Physical exam: General exam: Alert and oriented. Not in acute distress. CVS: S1 and S2 heard, regular rate and rhythm, no murmurs. RS: Clear to auscultation, no wheezing or crackles. ABD: Soft, bowel sounds present, nontender, no distention. [place] DO[place] WIGS: Nonfocal. EXT: No edema, no erythema. Labs: Reviewed. Assessment and plan: 65M with hx of sarcoidosis, granulomatous polyangitis , chf (ef 30%) s/p ICD presents with sob and dizziness going on for some time. He attributes his symptoms to cardura and jardiance. After stopping those medications his symptoms seems to be getting better as per patient. He still has sob on exertion and some chest discomfort and was sent to er by cardiology for further workup. Currently resting comfortably and hemodynamically stable. Currently no chest pain or sob or nausea or headaches or cough. Afebrile. Sob chest pain unstable angina? ekg and troponin unremarkable starting on iv heparin low dose for now serial ce echo npo after midnight cardiology consult in am tele monitoring Acute systolic chf? no obvious signs f volume overload on torsemide 20mg at hme will give one dose iv lasix 2mg daily weights. i/o's LORI presented with cr 1.4 follow labs in Other diagnosis and plan of care as per []. Aquilino riggins MD. (1) HTN (hypertension) Hypertension type: essential hypertension Qualified Code(s): I10 - Essential (primary) hypertension
[2021-02-07 19:52] LABS: Appearance Urine Clear (Clear); Bilirubin Urine Negative (Negative); Blood Urine Negative (Negative); Color Urine Yellow; Glucose Urine UA Negative (Negative); Ketones Urine Negative (Negative); Leukocyte Esterase Urine Negative (Negative); Nitrite Urine Negative (Negative); Protein Urine Negative (Negative); Specific Gravity Urine 1.013 (1.000-1.030); Urobilinogen Urine Negative (Negative)
[2021-02-07] MEDS ORDERED: hydrALAZINE TAB 50 MG TAB PO ONE (19:57)
[2021-02-07] MEDS ORDERED: FUROSEMIDE INJ 20 MG/2 ML VIAL IV STA (20:23)
[2021-02-07] MEDS ORDERED: POTASSIUM CHLORIDE CRTAB 20 MEQ TABCR PO STA (20:31)
[2021-02-07] MEDS ORDERED: SULFAMETHOXAZOLE/TRIMETHOPRIM DS 800/160MG TAB PO STA (20:41)
[2021-02-07] MEDS ORDERED: FUROSEMIDE 40 MG/4 ML VIAL IV ONE (21:12)
[2021-02-07] MEDS ORDERED: Heparin IV Adult Wt-Based Low-Dose *NO* Bolus Protocol ONE (21:20)
[2021-02-07] MEDS ORDERED: HEPARIN SODIUM/DEXTROSE 25,000 UNITS/500 ML BAG IV SCH (21:30)
[2021-02-07] MEDS ORDERED: GLUCOSE 40% GEL 15 GM TUBE PO PRN (23:20)
[2021-02-07] MEDS ORDERED: NITROGLYCERIN SL 0.4 MG/TAB TAB SL PRN (23:20)
[2021-02-07] MEDS ORDERED: GLUCOSE 10 TABS/TUBE PO PRN (23:20)
[2021-02-07] MEDS ORDERED: CARBOHYDRATES FOR HYPOGLYCEMIA PO PRN (23:20)
[2021-02-07] MEDS ORDERED: ACETAMINOPHEN 325 MG TAB PO PRN (23:20)
[2021-02-07] MEDS ORDERED: GLUCAGON FOR INJ 1 MG VIAL SQ PRN (23:20)
[2021-02-07] MEDS ORDERED: DEXTROSE 50% 50 ML SYRINGE IV PRN (23:20)
[2021-02-07] MEDS ORDERED: LORazepam 1 MG TAB PO PRN (23:35)
[2021-02-08] MEDS: INSULIN ASPART PER UNIT SC SCH ×6 (00:18→21:12)
[2021-02-08] MEDS: PANTOprazole 40 MG TAB PO SCH ×3 (00:37→19:56)
[2021-02-08] MEDS: carvediloL 25 MG TAB PO SCH ×3 (00:37→19:55)
[2021-02-08] MEDS: azaTHIOprine 50 MG TAB PO SCH ×3 (00:37→19:56)
[2021-02-08] MEDS: INSULIN GLARGINE SOLOSTAR 100 UNITS/ML 3 ML PEN SC SCH ×3 (00:39→21:11)
[2021-02-08 05:38] LABS: Basophils # (auto) 0.02 K/uL (0-0.2); Basophils % (auto) 0.2 %; Eosinophils # (auto) 0.21 K/uL (0-0.5); Eosinophils % (auto) 2.5 %; Hematocrit (blood only) 41.2 % (42-52); Hemoglobin 13.6 g/dL (14.0-18.0); Immature Granulocytes # (auto) 0.01 K/uL (0.00-0.02); Immature Granulocytes % (auto) 0.1 %; Lymphocytes # (auto) 1.27 K/uL (1.2-3.4); Lymphocytes % (auto) 15.2 %; Mean Corpuscular Hemoglobin 28.2 pg (25-34); Mean Corpuscular Volume 85.3 fL (80-100); Mean Platelet Volume 10.6 fL (7.4-10.4); Monocytes # (auto) 0.38 K/uL (0.11-0.59); Monocytes % (auto) 4.5 %; Neutrophils # (auto) 6.47 K/uL (1.4-6.5); Neutrophils % (auto) 77.5 %; Platelet Count 176 K/uL (130-400); RDW Coefficient of Variation 13.9 % (11.5-14.5); RDW Standard Deviation 43.3 fL (36.4-46.3); Red Blood Count 4.83 M/uL (4.7-6.1); White Blood Count 8.36 K/uL (4.8-10.8)
[2021-02-08 05:41] LABS: Partial Thromboplastin Ratio 1.1; Partial Thromboplastin Time 30.2 Seconds (21.0-31.0)
[2021-02-08 05:47] LABS: Calcium 8.8 mg/dl (8.5-10.1); Creatinine Clr Calc Pharmacy 63.4 ml/min; Est GFR (African American) 62.6 ml/min; Potassium 3.8 mmol/L (3.5-5.1)
[2021-02-08] MEDS ORDERED: HEPARIN SOD (PORCINE) 1000 UNIT/ML IV ONE (05:48)
[2021-02-08 05:50] LABS: Troponin I 0.02 ng/ml (0-0.045)
[2021-02-08] MEDS ORDERED: HEPARIN IV BOLUS 4,500 UNITS in SYRINGE 0 ML IV ONE (06:15)
[2021-02-08] MEDS ORDERED: Nursing to Pharmacy Communication SCH ×2 (08:00→16:30)
[2021-02-08] MEDS: hydrALAZINE TAB 50 MG TAB PO SCH ×3 (08:14→19:56)
[2021-02-08] MEDS: SERTRALINE HCL 100 MG TABLET PO SCH (08:16)
[2021-02-08] MEDS: TORSEMIDE 20 MG TAB PO SCH (08:17)
[2021-02-08] MEDS ORDERED: POTASSIUM CHLORIDE CRTAB 20 MEQ TABCR PO STA (09:41)
--- NOTE | 2021-02-08 10:27 | Pre Anesthesia Assessment ---
Date of Service February 08, 2021 Pre Sedation Assessment Vital Signs Temp Pulse Pulse Pulse Resp BP BP 02/08/21 07:53 36.5 C 78 18 164/90 H 02/08/21 03:39 36.5 C 85 16 144/91 H 02/08/21 02:41 79 02/08/21 01:55 36.7 C 84 18 147/88 H 02/08/21 01:03 81 21 02/07/21 23:20 89 18 154/96 H 02/07/21 22:41 90 18 170/94 H 02/07/21 21:00 91 H 18 176/101 H 02/07/21 20:45 37.2 C 90 22 134/78 02/07/21 17:13 36.9 C 85 85 20 171/90 H 171/90 H Pulse Ox 02/08/21 07:53 96 02/08/21 03:39 96 02/08/21 02:41 02/08/21 01:55 95 02/08/21 01:03 97 02/07/21 23:20 96 02/07/21 22:41 96 02/07/21 21:00 94 02/07/21 20:45 94 02/07/21 17:13 98 Cardiovascular + regular rate and + regular rhythm + S1 normal and + S2 normal; no murmur + PMI normal no JVD and no carotid bruit no edema Respiratory no respiratory distress and no labored breathing no crackles, no rales, no rhonchi and no wheezes Pre-Sedation Airway Assessment Smoking Status: Never smoker ASA: ASA3 NPO Status Date of Last Intake of Solid Food: 02/07/21 Procedure Planning Contraindications for Sedation: none Current Medications Reviewed: Yes Notes The planned sedation has been discussed with the patient. Informed Consent was obtained. I have identified the patient, determined the appropriateness of sedation and have assessed the patient immediately prior to the procedure. All medicine(s) and interventions are by my order.
[2021-02-08] MEDS: NITROGLYCERIN 0.2 MG/HR PATCH TD SCH (10:45)
[2021-02-08] MEDS ORDERED: fentaNYL citrate 100 MCG/2 ML VIAL ONE (11:03)
[2021-02-08] MEDS ORDERED: MIDAZOLAM HCL 1 MG/ML 2ML VIAL ONE (11:03)
[2021-02-08] MEDS ORDERED: niCARdipine HCL INJ 2.5 MG/ML 10 ML AMP ONE (11:04)
[2021-02-08] MEDS ORDERED: HEPARIN (PORCINE) 1000 UNIT/ML 10 ML (CATH LAB USE ONLY) ONE (11:04)
[2021-02-08] MEDS ORDERED: NITROGLYCERIN/D5W 100MCG/ML 20ML SYR ONE (11:07)
--- NOTE | 2021-02-08 11:12 | Cardiology Consultation ---
Date of Consultation February 08, 2021 Assessment & Plan (1) WARD (dyspnea on exertion): (2) Nonischemic cardiomyopathy: (3) NSVT (nonsustained ventricular tachycardia): Patient with longstanding history of nonischemic cardiomyopathy, angiographically normal coronary arteries at time of left heart catheterization, [facility] in 2013. Due to ongoing dyspnea, he underwent a right heart catheterization at [facility] in August,, with mean pulmonary artery wedge pressure of 11 mmHg at that time, mean pulmonary artery systolic pressure 23 mmHg. At that time, it was felt that he was not volume overloaded and ongoing optimization of his hypertension was recommended. The patient has been on multiple antihypertensives in the meantime. He describes worsening shortness of breath as well as a chest tightness which is new. He specifically describes recent symptoms of a focal left-sided chest tightness, often noted at rest as well as with exertion. Although his blood pressure is above goal in the 160s over 90s at present, per review of his recent outpatient blood pressures as well as his recollection of blood pressures at home, they have not been acutely elevated compared to his recent baseline. He does not examine as if he is volume overloaded, and he is not wheezing. At present, recommend reassessment with coronary angiography to definitively exclude the presence of new obstructive coronary heart disease as a new culprit of chest tightness. Further recommendations be forthcoming after obtaining coronary angiography, left-sided filling pressures. Patient also noted to have a 20 beat run of nonsustained ventricular tachycardia, 6 seconds duration, this morning 8:49 AM. He has a single-chamber AICD for primary prevention of sudden cardiac . Per review of his device checks, he has not had recent issues with regards to frequent ventricular arrhythmias. At present continue carvedilol, and optimization of his electrolytes. History of Present Illness Attending Physician: Maggie Weinstein, History of Present Illness aDrin Ortiz is a 65-year-old male seen in cardiology consultation per the request of Saira Osman PA-[facility] the evaluation of chest discomfort and shortness of breath. The patient's primary security systems manager is Dr. Guzmán of our practice. The patient was referred for an acute outpatient cardiology visit yesterday due to recent worsening shortness of breath and chest tightness. He states that his recent symptoms began several weeks ago, when he started the diabetes medication Jardiance. He noted lightheadedness, dizziness, and generalized muscle aches. He then noted chest tightness. That medication was discontinued. Shortly afterward he was transitioned off of hydralazine and onto Cardura, he once again felt ill, and noted stiffness and soreness in his arms bilaterally, and has been having chest tightness he describes a bandlike chest tightness across his entire chest, but also a separate focal left-sided chest tightness. This was not necessarily associated with aerobic exertion, and also came on with rest. He notes recently the focal left tightness in his chest has been improved, but he has had been having significant worsening dyspnea with minimal exertion as noted at recent visits with rheumatology and primary care. Due to the significance of his symptoms yesterday, he underwent an echocardiogram as an outpatient revealed ongoing moderate to severe left ventricular systolic dysfunction, and he was referred for further evaluation. He received 20 mg of IV furosemide last evening. This morning he is feeling more comfortable, and is not in acute distress. Blood pressures are mildly elevated with most recent measurement of 164/90, and notes that throughout his recent outpatient medication changes that his systolic blood pressure has been in the 160s. He has a longstanding history of a nonischemic cardiomyopathy. He underwent invasive coronary angiography performed by Dr. Guzmán of our practice at [facility] on 11/14/2013 with widely patent coronary anatomy at that time. Cardiac MRI performed at [facility] in August, with noted atypical intermediate enhancement of the basal anteroseptal, inferoseptal, and inferolateral segments, LVEF 27%. No evidence of myocardial infarction. His history is notable for granulomatous pharyngitis, remote history of sarcoidosis, nonischemic cardiomyopathy, and difficult control hypertension. Allergies Allergy/AdvReac Type Severity Reaction Status Date / Time JESSICA Inhibitors Allergy Severe anaphylaxis Verified 02/07/21 19:00 bee venom protein (honey bee) Allergy Severe anaphylaxis Verified 02/07/21 19:00 hydrochlorothiazide Allergy Intermediate mouth Verified 02/07/21 19:00 swells doxazosin [From Cardura] AdvReac MUSCLE Verified 02/07/21 19:01 ACHES, DIZZY, CHEST PAIN empagliflozin AdvReac DEHYDRATION Verified 02/07/21 19:02 [From Jardiance] Home Medications Medication Instructions Recorded Confirmed Type azathioprine 50 mg tablet 50 mg PO BID 11/21/18 12/08/21 History carvedilol 25 mg tablet 25 mg PO BID 01/21/18 02/07/21 History hydralazine 50 mg tablet 50 mg PO TID 01/21/18 02/07/21 History lorazepam 1 mg tablet 1 mg PO DAILY PRN 01/21/18 02/07/21 History nitroglycerin 0.4 mg sublingual 0.4 mg SUBLINGUAL DIRECTED PRN 01/21/18 02/07/21 History tablet (Nitrostat) sertraline 100 mg tablet 200 mg PO DAILY 01/21/18 02/07/21 History sulfamethoxazole 800 1 tab PO 3XWK 01/21/18 02/07/21 History mg-trimethoprim 160 mg tablet aspirin 81 mg tablet,delayed 81 mg PO QPM 01/23/18 02/07/21 History release meclizine 12.5 mg tablet 12.5 mg PO BID PRN 01/23/18 02/07/21 History omeprazole 20 mg capsule,delayed 20 mg PO BID 01/23/18 02/07/21 History release aspirin 81 mg tablet 324 mg PO .TODAY 02/07/21 02/07/21 History buspirone 15 mg tablet 15 mg PO DAILY PRN 02/07/21 02/07/21 History insulin human U-100 NPH-regulr 44 unit SUBCUT .QSUPPER 02/07/21 02/07/21 History 70-30 mix 100 unit/mL subcutaneous susp (Novolin 70/30 U-100 Insulin) insulin human U-100 NPH-regulr 50 unit SUBCUT QAM 02/07/21 02/07/21 History 70-30 mix 100 unit/mL subcutaneous susp (Novolin 70/30 U-100 Insulin) nitroglycerin 0.2 mg/hr 1 patch TRANSDERMAL DAILY 02/07/21 02/07/21 History transdermal 24 hour patch torsemide 20 mg tablet 20 mg PO DAILY 02/07/21 02/07/21 History Patient History Medical History (Updated 02/08/21 @ 11:34 by Eugenio Hatch DO) Acute electrocardiogram changes Acute on chronic systolic (congestive) heart failure Chronic hepatitis (11/13/12) Depression with anxiety Diabetes mellitus, type II Granulomatosis with polyangiitis Heart disease (11/13/12) HTN (hypertension) ICD (implantable cardioverter-defibrillator) in place Kidney disease (11/13/12) NICM (nonischemic cardiomyopathy) Nonischemic cardiomyopathy GARDENIA (obstructive sleep apnea) Sarcoid We[place]ers granulomatosis Surgical History History of bronchoscopy History of cardiac cath 2015 History of cholecystectomy Family History Sister Cancer esophagus Social History Smoking Status: Never smoker Hx Alcohol Use: No Hx Substance Use: No Preferred Language: Icelandic Communication Ability: Effective Vat Packer Required: No Beliefs That Will Affect Care: None Current Living Situation: Spouse Current Living Situation Comment: 2 story home with Feels Safe at Home: Yes Safety Concerns: Feels Safe At This Time Assistive Devices: Oxygen - at Night Review of Systems Review of Systems: All systems reviewed & are unremarkable except as noted in HPI & below Physical Exam Physical Exam: Temp Pulse Resp BP Pulse Ox 36.5 C 78 18 164/90 H 96 02/08/21 07:53 02/08/21 07:53 02/08/21 07:53 02/08/21 07:53 02/08/21 07:53 Constitutional: WD/WN, vitals as above Respiratory: normal respiratory effort, lungs clear to auscultation Cardiovascular: RRR, no murmur, no edema Gastrointestinal (Abdomen): normal bowel sounds, soft, nontender, no hepatosplenomegaly Neurologic: PERRL, EOMI, accommodation nl, no face palsy, no dysarthria Results & Data ([facility]) Vital Signs (Past 12 Hours) Vital Signs Temp Pulse Pulse Pulse Resp BP Pulse Ox 02/08/21 07:53 36.5 C 78 18 164/90 H 96 02/08/21 03:39 36.5 C 85 16 144/91 H 96 02/08/21 02:41 79 02/08/21 01:55 36.7 C 84 18 147/88 H 95 02/08/21 01:03 81 21 97 02/07/21 23:20 89 18 154/96 H 96 Laboratory Results Cardiac Enzymes 12/10/2102/07/21 02/08/21 Range/Units 17:16 23:56 05:15 AST 23 (15-37) U/L Troponin I 0.027 0.039 0.020 (0-0.045) ng/ml Coagulation 02/07/21 02/08/21 Range/Units 17:16 05:15 PT 9.9 (9.0-12.0) Seconds APTT 24.7 30.2 (21.0-31.0) Seconds Lipids 02/08/21 Range/Units 05:15 Triglycerides 185 H (0-150) mg/dl Cholesterol 107 (0-200) mg/dl HDL Cholesterol 32 mg/dl Cholesterol/HDL Ratio 3 CBC 02/07/21 02/08/21 Range/Units 17:16 05:15 WBC 8.58 8.36 (4.8-10.8) K/uL RBC 4.77 4.83 (4.7-6.1) M/uL Hgb 13.9 L 13.6 L (14.0-18.0) g/dL Hct 40.6 L 41.2 L (42-52) % Plt Count 209 176 (130-400) K/uL Neut # (Auto) 6.59 H 6.47 (1.4-6.5) K/uL Lymph # (Auto) 1.22 1.27 (1.2-3.4) K/uL [place] # (Auto) 0.56 0.38 (0.11-0.59) K/uL Eos # (Auto) 0.17 0.21 (0-0.5) K/uL Baso # (Auto) 0.03 0.02 (0-0.2) K/uL Comprehensive Metabolic Panel 02/07/21 02/08/21 Range/Units 17:16 05:15 Sodium 138 139 (136-145) mmol/L Potassium 3.2 L 3.8 D (3.5-5.1) mmol/L Chloride 107 108 H (98-107) mmol/L Carbon Dioxide 22 28 (21-32) mmol/L BUN 22 H 22 H (7-18) mg/dl Creatinine 1.46 H 1.38 (0.6-1.4) mg/dl Glucose 204 H 182 H (70-99) mg/dl Calcium 9.3 8.8 (8.5-10.1) mg/dl AST 23 (15-37) U/L ALT 34 (12-78) Alkaline Phosphatase 76 (45-117) U/L Total Protein 7.2 (6.4-8.2) gm/dl Albumin 3.5 (3.4-5.0) gm/dl Intake and Output 02/07/21 02/08/21 02/08/21 22:59 06:59 14:59 Intake Total 132 / 132 Output Total 450 / 450 Balance -318 / -318 Intake: IV 132 / 132 Heparin Sodium/Dextrose 25,000 132 / 132 units In 500 ml @ 1,000 UNITS/ HR 20 mls/hr IV .Q[facility]H [facility] Rx#: [id number] Oral 0 / 0 Output: Urine 450 / 450 Other: Other Intake Source NPO Weight 101.8 kg 98 kg Weight Measurement Method Built in [facility] Built in [facility] Diagnostic Findings EKG performed 02/08/2021 reveals normal sinus rhythm at 80 bpm, mild nonspecific repolarization changes, unchanged compared to yesterday. Echocardiogram reveals moderate to severe global left ventricular hypokinesis, LVEF 30%, diastolic dysfunction, mild mitral regurgitation. Tricuspid gravitation was absent, and therefore the right ventricular systolic pressure or pulmonary artery systolic pressure cannot be estimated, no evidence of pulmonary hypertension by 2D criteria. Chest x-ray reveals enlargement of the cardiac silhouette, new onset pulmonary edema or interstitial lung disease.
--- NOTE | 2021-02-08 11:59 | Post Anesthesia Assessment ---
Date of Service February 08, 2021 Post Sedation Assessment Vital Signs Temp Pulse Pulse Pulse Resp BP BP 02/08/21 07:53 36.5 C 78 18 164/90 H 02/08/21 03:39 36.5 C 85 16 144/91 H 02/08/21 02:41 79 02/08/21 01:55 36.7 C 84 18 147/88 H 02/08/21 01:03 81 21 02/07/21 23:20 89 18 154/96 H 02/07/21 22:41 90 18 170/94 H 02/07/21 21:00 91 H 18 176/101 H 02/07/21 20:45 37.2 C 90 22 134/78 02/07/21 17:13 36.9 C 85 85 20 171/90 H 171/90 H Pulse Ox 02/08/21 07:53 96 02/08/21 03:39 96 02/08/21 02:41 02/08/21 01:55 95 02/08/21 01:03 97 02/07/21 23:20 96 02/07/21 22:41 96 02/07/21 21:00 94 02/07/21 20:45 94 02/07/21 17:13 98 Recovery Score Activity: Moves 4 extremities Respiration: Deep Breath/Cough Circulation: +/-20% PreAnes Value Consciousness: Fully Awake Oxygen Saturation: O2 needed for >90% Discharge Sedation Level of Care: Phase I Post Sedation Plan On clinical assessment, the patient appears to have tolerated the sedation without complications. Patient is recovering as anticipated. Patient will continue to be monitored by nursing and may be discharged when sedation discharge criteria are met per below protocol. Upon Completions of procedure up to 15 minutes continue every 5 minute vital signs and the P.A.R. score; then discharge to a Phase I or Fast Track to Phase II per the following guidelines: * Discharge Patient to appropriate Phase II area if PAR is 8 or greater or return to pre- procedure baseline. The post - procedure orders will be as d irected. * If PAR score is less than 8 or not return to pre-procedure baseline then patient will follow Phase I monitoring till PAR is reached for Phase II. The Phase I may be done in procedure room or may call to secure a Phase I area. * If naloxone or flumazenil are used for reversal, hold in Phase I for continued monitoring from when last reversal dose was given for a minimum of 60 minutes or longer pending the nurse and/or physician discretion of patient condition before discharge to Phase II. Please call the Sedation Physician to re-evaluate and complete post-note for discharge to Phase II area. Do NOT discharge from procedure sedation or Phase 1 until post- sedation evaluation note is complete by procedure /sedation MD Sedation Discharge Instructions to be given to the patient at discharge to home.
--- NOTE | 2021-02-08 12:02 | Cardiac Catheterization ---
Cardiac Cath Procedure Full Procedure Date February 08, 2021 Pre-Procedure Diagnosis Pre-Procedure Diagnosis: Angina and CHF AUC Score AUC Score: 7 Post-Procedure Diagnosis Post-Procedure Diagnosis: Mild CAD and Normal Intracardiac Pressures Procedure(s) Performed Procedure(s) Performed: Coronary Angiography and Left Heart Cath Physical Integration Practitioner Sanjiv Mccartney DO Hand Cloth Folder(s) Mayra Henriquez WAREHOUSE HELPER Estimated Blood Loss Estimated Blood Loss: 5cc Summary of Findings Right dominant coronary anatomy. There are mild luminal irregularities of the right posterior lateral branch vessel, otherwise normal coronary arteries. Normal left ventricular end-diastolic pressure. Hemodynamics Rest Ao:: 125/72/96 Final Ao: 142/73/86 LV: 125/1/8 Recommendations Recommendations: Medical Therapy and/or Counseling Specimens Specimens: None Radiation Exposure (mGy) 402 Contrast (mls) 40 Fluids (cc crystalloids) Fluids (cc crystalloids): 50 Nss Drains Drains: N/A Anesthesia Moderate sedation. Start 1119. End 1146. Sedation monitor: Braden PINTO Procedural Complication(s) None Disposition Corporate Security Manager Holding/Recovery I attest to the content of the Intraoperative Record and any orders documented therein. Any exceptions are noted below. ACC Data: Corporate Security Manager Cardiac Status Clinical evaluation leading to the procedure CAD Presenation: Unstable angina Anginal Classification: CCS III Heart Failure: NYHA Class: CCS III Cardiogenic Shock within 24 Hours: No Cardiac Arrest within 24 Hours: No Imaging Studies Past 6 Months: Yes Stress Studies Past 6 Months: No Coronary Anatomy Dominant: Right Left Main (% Stenosis): Normal LAD (% Stenosis): Normal D1 (% Stenosis): Normal Circumflex (% Stenosis): Normal OM1 (% Stenosis): Normal L PL1 (% Stenosis): Normal RCA (% Stenosis): Normal R PDA (% Stenosis): Normal R PL1 (% Stenosis): Normal R PL2 (% Stenosis): Proximal (20%) Diagnostic Physicians Name: Sanjiv Mccartney DO Closure Device Recommendations: Medical Therapy and/or Counseling Intraprocedure Events Significant Disection: No Perforation: No
--- NOTE | 2021-02-08 14:25 | Communication Note ---
Date of Service: February 08, 2021 Cardiac catheterization without culprit coronary artery stenosis to explain his symptoms. Although hypertension noted, his left-sided filling pressures were normal with LVEDP of 8 mmHg. Prior right heart catheterization which took place for similar symptoms at [facility] in August, revealed normal pulmonary capillary wedge pressure, 11 mmHg, mean pulmonary artery systolic pressure 23 mmHg (normal) at that time. -Given normal right ventricular chamber size, systolic function, and lack of evidence of pulmonary hypertension on transthoracic echocardiogram, healed of right heart catheterization with regards to finding pulmonary hypertension was felt to be low and therefore not performed. No evidence of underlying interstitial lung disease on prior CT of the chest 2017. The patient is not wheezing, and does not examine as if he is having an acute exacerbation of lung disease. Dyspnea on exertion and hypoxia noted, will start with screening D-dimer and if positive, will consider CT angiogram which would likely need to be delayed until tomorrow as he has already received contrast for cardiac catheterization today. The patient is already on the immunosuppressant Imuran on a chronic basis. Future diagnostic options for his dyspnea on exertion include outpatient pulmonary function test, and cardiopulmonary stress test.
[2021-02-08 16:48] LABS: D Dimer 210 ug/L FEU (0-500)
--- NOTE | 2021-02-08 17:44 | Communication Note ---
Date of Service: February 08, 2021 Patient reassessed in room 111 post cardiac catheterization. No complaints, he is off supplemental oxygen, with pulse oximetry of 96% time my assessment. Catheterization results reviewed with patient/spouse. D-dimer screen negative. Discontinue unfractioned heparin order. Transition to DVT prophylaxis dose Lovenox for tomorrow morning.
--- NOTE | 2021-02-08 19:58 | Hospitalist Progress Note ---
Date of Service February 08, 2021 Assessment & Plan (1) Atypical chest pain: Plan: Uncertain cause, patient feels this was provoked by started Cardura which has been stopped. He is now chest pain free, helped mostly from the heparin in his opinion. Cont to monitor overnight. (2) Nonischemic cardiomyopathy: Plan: Appears compensated from a volume standpoint. He is recovering from a cardiac catheterization revealing no significant coronary artery disease. Chest pain symptoms have resolved. Cont current medical therapy. (3) HTN (hypertension): Plan: Continue carvedilol, hydralazine per home regimen. (4) Diabetes mellitus, type II: Plan: A1c: 8.3 in 01/12/2021 Hold home insulin Basal bolus insulin per protocol (5) Granulomatosis with polyangiitis: Plan: History granulomatosis with polyangiitis, History sarcoidosis Continue Imuran and Bactrim mon, wed, fri As cardiac workup is negative and D dimer negative, outpatient pulm workup is considered, however, patient is improved. (6) GARDENIA (obstructive sleep apnea): Plan: CPAP with 2L O2 HS (7) Depression with anxiety: Plan: Continue sertraline per home regimen. (8) DVT prophylaxis: Plan: heparin drip changed to Lovenox Full Code Dispo-to home in am pending cardiology clearance and once he is feeling better. Maggie Weinstein DO [facility] Hospitalist Admission and Anticipated Discharge Date Admission Date: February 07, 2021 Subjective 65 yo M with a h/o sarcoidosis, granulomatosis with polyangiitis on Imuran, dated cardiomyopathy s/p ICD who presents with ongoing SOB, chest pain and dizziness. He describes the pain as constant in the left anterior chest and radiating across the superior chest anteriorly. He reports this started 2 weeks after starting Cardura and when he received the heparin in the ER overnight, this finally felt relieved. He underwent a cardiac catheterization today r evealing mild luminal irregularities of the right posterior lateral branch vessel, otherwise normal coronary arteries and a normal left ventricular end- diastolic pressure. Medical therapy was recommended. Again he is feeling well. A d dimer was 210 and heparin was stopped. DEnies cough, fevers, chills or other symptoms. Review of Systems Review of Systems: All systems were reviewed and negative except as indicated in subjective above. Physical Exam Physical Exam: CONSTITUTIONAL: WNWD, vitals as above, generally well- appearing EYES: normal conjunctivae, no scleral icterus ENT: external ear and nose normal, MMM NECK: trachea midline RESPIRATORY: clear to auscultation bilaterally, no crackles, rales or wheezes, normal respiratory effort CARDIOVASCULAR: regular rate and rhythm, S1 and 2 heard without murmurs, gallops or rubs, no JVD, no peripheral edema GASTROINTESTINAL: soft, nontender, ND, no guarding MUSCULOSKELETAL: strength 5/5 throughout, head is normocephalic and atraumatic, neck supple, normal palpation of chest wall without tenderness SKIN: warm and dry NEUROLOGIC: CN 2-12 grossly intact, no sensory deficit, normal cognition, normal speech, no tremor, no gross focal deficits. PSYCHIATRIC: alert cooperative and oriented to person, place and time. Results & Data Results & Data ([facility]) Vital Signs (Past 12 Hours) Vital Signs Temp Pulse Pulse Resp BP Pulse Ox 02/08/21 17:00 75 14 153/89 H 99 02/08/21 16:00 36.5 C 75 16 161/93 H 94 02/08/21 15:00 80 16 155/96 H 96 02/08/21 14:30 68 16 139/75 94 02/08/21 14:15 72 16 137/99 93 02/08/21 14:00 72 16 142/80 H 94 02/08/21 13:45 76 16 142/81 H 94 02/08/21 13:30 74 16 140/79 94 02/08/21 13:15 75 16 139/77 94 02/08/21 13:00 77 16 151/88 H 93 02/08/21 12:45 75 16 152/86 H 94 02/08/21 12:30 80 16 146/89 H 96 02/08/21 12:25 86 16 160/102 H 92 02/08/21 11:55 84 16 141/91 H 92 Laboratory Results Short CBC 02/08/21 Range/Units 05:15 WBC 8.36 (4.8-10.8) K/uL Hgb 13.6 L (14.0-18.0) g/dL Hct 41.2 L (42-52) % Plt Count 176 (130-400) K/uL BMP 02/08/21 05:15 Sodium 139 Potassium 3.8 D Chloride 108 H Carbon Dioxide 28 BUN 22 H Creatinine 1.38 Glucose 182 H Calcium 8.8 Cardiac Enzymes 02/07/21 02/08/21 Range/Units 23:56 05:15 Troponin I 0.039 0.020 (0-0.045) ng/ml Medications Administered Current Inpatient Medications Acetaminophen (Acetaminophen 325 Mg Tab) 650 mg PO Q4H PRN PRN Reason: Pain or Fever Stop: 03/09/21 23:19 Aspirin (Aspirin 81 Mg Ectab) 81 mg PO QPM [facility] Stop: 03/10/21 20:59 Azathioprine (Azathioprine 50 Mg Tab) 50 mg PO BID [facility] Stop: 03/09/21 23:19 Last Admin: 02/08/21 08:17 Dose: 50 mg Documented by: Carvedilol (Carvedilol 25 Mg Tab) 25 mg PO BID [facility] Stop: 03/09/21 23:19 Last Admin: 02/08/21 08:16 Dose: 25 mg Documented by: Dextrose (Dextrose 50% 50 Ml Syringe) 25 - 50 ml IV UD PRN; Protocol PRN Reason: Hypoglycemia Protocol Stop: 03/09/21 23:19 Enoxaparin Sodium (Enoxaparin Inj 40 Mg/0.4 Ml Syr) 40 mg SQ QAM [facility] Stop: 03/11/21 08:59 Glucagon (Glucagon For Inj 1 Mg Vial) 1 mg SQ UD PRN; Protocol PRN Reason: Hypoglycemia Protocol Stop: 03/09/21 23:19 Glucose (Glucose 10 Tabs/Tube) 4 - 8 tabs PO UD PRN; Protocol PRN Reason: Hypoglycemia Protocol Stop: 03/09/21 23:19 Glucose (Glucose 40% Gel 15 Gm Tube) 15 - 30 gm PO UD PRN; Protocol PRN Reason: Hypoglycemia Protocol Stop: 03/09/21 23:19 Hydralazine HCl (Hydralazine Tab 50 Mg Tab) 50 mg PO TID [facility] Stop: 03/10/21 08:59 Last Admin: 02/08/21 16:35 Dose: 50 mg Documented by: Insulin Aspart (Insulin Aspart Per Unit) 0 units SC ACHS [facility] Stop: 03/10/21 07:49 Last Admin: 02/08/21 17:32 Dose: 4 units Documented by: Insulin Glargine (Insulin Glargine Solostar 100 Units/Ml 3 Ml Pen) 0 - 10 units SC BID [facility]; Protocol Stop: 03/09/21 23:19 Last Admin: 02/08/21 10:44 Dose: 10 units Documented by: Lorazepam (Lorazepam 1 Mg Tab) 1 mg PO DAILY PRN PRN Reason: Anxiety Stop: 03/09/21 23:34 Miscellaneous (Carbohydrates For Hypoglycemia ) 15 - 30 gm PO UD PRN PRN Reason: Hypoglycemia Protocol Stop: 03/09/21 23:19 Miscellaneous (Remove Nitro-Dur Patch) 1 ea N/A DAILY@2100 [facility] Stop: 03/10/21 20:59 Nitroglycerin (Nitroglycerin Sl 0.4 Mg/Tab Tab) 0.4 mg SL UD PRN PRN Reason: Chest Pain Stop: 03/09/21 23:19 Nitroglycerin (Nitroglycerin 0.2 Mg/Hr Patch) 1 patch TD DAILY [facility] Stop: 03/10/21 08:59 Last Admin: 02/08/21 10:45 Dose: 1 patch Documented by: Pantoprazole Sodium (Pantoprazole 40 Mg Tab) 40 mg PO BID [facility] Stop: 03/09/21 23:19 Last Admin: 02/08/21 08:15 Dose: 40 mg Documented by: Potassium Chloride (Potassium Chloride Crtab 20 Meq Tabcr) 20 meq PO ONE ONE Stop: 02/08/21 22:01 Sertraline HCl (Sertraline Hcl 100 Mg Tablet) 200 mg PO DAILY [facility] Stop: 03/10/21 08:59 Last Admin: 02/08/21 08:16 Dose: 200 mg Documented by: Torsemide (Torsemide 20 Mg Tab) 20 mg PO DAILY [facility] Stop: 03/10/21 08:59 Last Admin: 02/08/21 08:17 Dose: 20 mg Documented by: Trimethoprim/Sulfamethoxazole (Sulfamethoxazole/Trimethoprim Ds 800/160mg Tab) 1 tab PO MoWeFr@2100 [facility] Stop: 03/11/21 20:59 (1) HTN (hypertension) Hypertension type: essential hypertension Qualified Code(s): I10 - Essential (primary) hypertension
[2021-02-08] MEDS ORDERED: ASPIRIN 81 MG ECTAB PO SCH (21:00)
--- NOTE | 2021-02-08 21:36 | Electrocardiogram Report ---
Test Reason : Blood Pressure : / mmHG Vent. Rate : 081 BPM Atrial Rate : 081 BPM P-R Int : 174 ms QRS Dur : 098 ms QT Int : 466 ms P-R-T Axes : 060 021 087 degrees QTc Int : 541 ms Normal sinus rhythm Possible Left atrial enlargement Left ventricular hypertrophy Nonspecific ST and T wave abnormality Prolonged QT Abnormal ECG When compared with ECG of 23-JAN-2018 06:26, No significant change was found Confirmed by Zachary Segovia ([id number]) on 02/08/2021 9:35:55 PM Referred By: REFERRED SELF Confirmed By:Zachary Segovia
[2021-02-08] MEDS ORDERED: POTASSIUM CHLORIDE CRTAB 20 MEQ TABCR PO ONE (22:00)
--- NOTE | 2021-02-08 22:33 | Electrocardiogram Report ---
Test Reason : Blood Pressure : / mmHG Vent. Rate : 080 BPM Atrial Rate : 080 BPM P-R Int : 190 ms QRS Dur : 102 ms QT Int : 460 ms P-R-T Axes : 056 021 083 degrees QTc Int : 530 ms Normal sinus rhythm Possible Left atrial enlargement Nonspecific T wave abnormality Prolonged QT Abnormal ECG When compared with ECG of 07-FEB-2021 17:13, No significant change was found Confirmed by Zachary Segovia ([id number]) on 02/08/2021 10:33:02 PM Referred By: REFERRED SELF Confirmed By:Zachary Segovia
[2021-02-09 05:13] LABS: Hematocrit (blood only) 40.7 % (42-52); Hemoglobin 13.5 g/dL (14.0-18.0); Mean Corpuscular Hemoglobin 28.4 pg (25-34); Mean Corpuscular Hgb Conc 33.2 g/dL (32-36); Mean Corpuscular Volume 85.5 fL (80-100); Mean Platelet Volume 10.5 fL (7.4-10.4); Platelet Count 174 K/uL (130-400); RDW Standard Deviation 43.8 fL (36.4-46.3); Red Blood Count 4.76 M/uL (4.7-6.1); White Blood Count 8.38 K/uL (4.8-10.8)
[2021-02-09 05:40] LABS: BUN Creatinine Ratio 16.2 (10-20); Calcium 9.1 mg/dl (8.5-10.1); Creatinine Clr Calc Pharmacy 59.6 ml/min; Est GFR (African American) 59.5 ml/min; Est GFR (Non-African American) 51.3 ml/min
[2021-02-09] MEDS: INSULIN ASPART PER UNIT SC SCH ×2 (08:08→12:51)
[2021-02-09] MEDS: azaTHIOprine 50 MG TAB PO SCH (08:11)
[2021-02-09] MEDS: PANTOprazole 40 MG TAB PO SCH (08:11)
[2021-02-09] MEDS: TORSEMIDE 20 MG TAB PO SCH (08:11)
[2021-02-09] MEDS: SERTRALINE HCL 100 MG TABLET PO SCH (08:12)
[2021-02-09] MEDS: carvediloL 25 MG TAB PO SCH (08:12)
[2021-02-09] MEDS: hydrALAZINE TAB 50 MG TAB PO SCH (08:12)
[2021-02-09] MEDS: NITROGLYCERIN 0.2 MG/HR PATCH TD SCH (08:12)
[2021-02-09] MEDS: INSULIN GLARGINE SOLOSTAR 100 UNITS/ML 3 ML PEN SC SCH (08:12)
[2021-02-09] MEDS ORDERED: ENOXAPARIN INJ 40 MG/0.4 ML SYR SQ SCH (09:00)
--- NOTE | 2021-02-09 10:16 | Cardiology Progress Note ---
Date of Service February 09, 2021 Assessment & Plan (1) WARD (dyspnea on exertion): (2) Nonischemic cardiomyopathy: (3) NSVT (nonsustained ventricular tachycardia): Plan: LVEF ~30% unchanged compared to prior chronic baseline. No echocardiographic evidence of RV dysfunction or pulmonary hypertension. Very minimal CAD noted on cath , 02/08/21, 20% R PL2 branch that does not account for his symptoms. 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 BPs remain above goal, SBPs in 140s to 160s, but not different from chronic baseline , and given recent dizziness, recommend DC to home on same regiment.Spironolactone considered, not started due to interaction with Bactrim. Prior right heart catheterization which took place for similar symptoms at [facility] in [place], revealed normal pulmonary capillary wedge pressure, 11 mmHg, mean pulmonary artery systolic pressure 23 mmHg (normal) at that time. Screening D-dimer negative on 02/08. In summary, symptoms felt to be not cardiac. No evidence of underlying interstitial lung disease on prior CT of the chest 2017. The patient is not wheezing, and does not examine as if he is having an acute exacerbation of lung disease. The patient is already on the immunosuppressant Imuran on a chronic basis. Future considerations include referral to [facility] pulmonary for possible sarcoid / occult ILD, complete pulmonary function tests, and cardiopulmonary stress test. With regard to the brief asymptomatic episode of NSVT noted earlier this stay. There has been no recurrence, continue Coreg, has ICD. Of note pt has h/o anaphylaxis with ACEInhibitor in past, therefore not on ACEI , ARB, or Entresto. He is on long acting nitrate and hydralazine instead for afterload reduction. ASA and atorvastatin added. Stable for DC from cardiac perspective. Admission and Anticipated Discharge Date Admission Date: February 07, 2021 Subjective Pt seen in follow up of his chief complaint of WARD and chest tightness. He s comfortable. Feels well. Denies dizziness, CP , or SOB. Pulse ox 97% on room air (witnessed by undersigned). Review of Systems Review of Systems: All systems reviewed & are unremarkable except as noted in HPI & below Physical Exam Physical Exam: Temp Pulse Resp BP Pulse Ox 36.4 C L 82 16 164/95 H 97 02/09/21 08:06 02/09/21 08:06 02/09/21 08:06 02/09/21 08:06 02/09/21 08:06 Constitutional: WD/WN, vitals as above Respiratory: normal respiratory effort, lungs clear to auscultation Cardiovascular: RRR, no murmur, no edema Gastrointestinal (Abdomen): normal bowel sounds, soft, nontender, no hepatosplenomegaly Neurologic: PERRL, EOMI, accommodation nl, no face palsy, no dysarthria Results & Data ([facility]) Vital Signs (Past 12 Hours) Vital Signs Temp Pulse Pulse Resp BP BP Pulse Ox 02/09/21 08:06 36.4 C L 82 16 164/95 H 97 02/09/21 03:49 36.5 C 76 20 158/84 H 95 02/09/21 02:20 79
[2021-02-09] MEDS ORDERED: ATORVASTATIN 10 MG TAB PO SCH (10:30)
--- NOTE | 2021-02-09 10:50 | Discharge Summary ---
Date of Service February 09, 2021 Admission HPI Per Admitting Provider Patient is 65-year-old male with PMH sarcoidosis, granulomatosis with polyangiitis, chronic systolic CHF, EF 30%, s/p ICD, paroxysmal V. tach, DM II, HTN, GARDENIA, obesity, depression, anxiety presented to ER for shortness of breath. Patient reports chronic exertional shortness of breath at baseline. He reports for the past month has had increased exertional shortness of breath. Patient states approximately 1 month ago he was started on Cardura and he feels that his symptoms increased at that time. Patient also reports approximately 1-3 times a month he will have sharp chest pain which resolves at rest. He states since starting the Cardura he felt he was having more frequent chest tightness and also having aching of lower legs. He also reports chronic dizziness with standing at baseline however felt like that was also increased over the past month. His Cardura has since been discontinued and he reports decreased dizziness, and resolution of chest tightness and aching of lower legs. He was seen at PCPs office as well as cardiology office today and was noted to have shortness of breath without hypoxia. At cardiology office he had EKG with reported NSR with new anterolateral t wave inversions and echo with preliminary reading diffuse hypokinesis that was similar to prior and possible inferior wall hypokinesis. Since being in ER patient has been sitting and denies any increase shortness of breath and feels like his breathing is at baseline. Denies any chest pain or tightness. Denies any increased lower extremity edema or change in weight He reports will have rare nonproductive cough at baseline and denies any increased cough or any hemoptysis. Denies fever/chills, diaphoresis, N/V/D/C, OLIVERA, syncope, vision changes, neck pain, orthopnea, palpitations, sore throat, choking, otalgia, rhinorrhea, abdominal pain, paresthesias, weakness, extremity weakness, extremity edema, rashes, urinary symptoms. In ER pt afebrile, BP 171/90, P: 85, R: 20, 98% on RA. Initial troponin 0.027. CXR without acute changes. Negative COVID Admission Exam Per Admitting Provider Physical exam: General exam: Alert and oriented. Not in acute distress. CVS: S1 and S2 heard, regular rate and rhythm, no murmurs. RS: Clear to auscultation, no wheezing or crackles. ABD: Soft, bowel sounds present, nontender, no distention. [employer]: Nonfocal. EXT: No edema, no erythema. Principal Diagnosis Atypical chest pain Dyspnea on exertion Nonsustained ventricular tachycardia Nonischemic cardiomyopathy Hypertension DMII Granulomatosis with polyangiitis CKD Stage III Discharge Exam CONSTITUTIONAL: WNWD, vitals as above, generally well-appearing EYES: normal conjunctivae, no scleral icterus ENT: external ear and nose normal, MMM NECK: trachea midline RESPIRATORY: clear to auscultation bilaterally, no crackles, rales or wheezes, normal respiratory effort CARDIOVASCULAR: regular rate and rhythm, S1 and 2 heard without murmurs, gallops or rubs, no JVD, no peripheral edema GASTROINTESTINAL: soft, nontender, ND, no guarding MUSCULOSKELETAL: strength 5/5 throughout, head is normocephalic and atraumatic, neck supple, normal palpation of chest wall without tenderness SKIN: warm and dry NEUROLOGIC: CN 2-12 grossly intact, no sensory deficit, normal cognition, normal speech, no tremor, no gross focal deficits. PSYCHIATRIC: alert cooperative and oriented to person, place and time. Discharge Data Allergies Allergy/AdvReac Type Severity Reaction Status Date / Time JESSICA Inhibitors Allergy Severe anaphylaxis Verified 02/07/21 19:00 bee venom protein (honey bee) Allergy Severe anaphylaxis Verified 02/07/21 19:00 hydrochlorothiazide Allergy Intermediate mouth Verified 02/07/21 19:00 swells doxazosin [From Cardura] AdvReac MUSCLE Verified 02/07/21 19:01 ACHES, DIZZY, CHEST PAIN empagliflozin AdvReac DEHYDRATION Verified 02/07/21 19:02 [From Jardiance] Consultations 02/07/21 18:06 ED Decision to Admit Stat 02/07/21 23:20 Consult Cardiology Routine Procedures Performed Operation Date: 02/08/21 11:30 Actual Procedures p Cath, Left with Cors and Vent - Sanjiv Mccartney DO s Cineradiography w/Routine Exam - Sanjiv Mccartney DO Ordered Studies 02/08/21 10:56 CL Cath Imgs for PACS use only Routine Hospital Course (1) Atypical chest pain: Uncertain cause, patient feels this was provoked by started Cardura which has been stopped. He is now chest pain free, helped mostly from the heparin in his opinion. Cont to monitor overnight and he did well. Chest pain resolved and cardura stopped. Discharged in stable condition with close primary care followup recommended. (2) Nonischemic cardiomyopathy: Appears compensated from a volume standpoint. Cardiac catheterization performed on 02/08 revealed no significant coronary artery disease. Chest pain s ymptoms have resolved. Cont current medical therapy. (3) HTN (hypertension): Continue carvedilol, hydralazine per home regimen. (4) Diabetes mellitus, type II: A1c: 8.3 in 01/12/2021 Hold home insulin Basal bolus insulin per protocol (5) Granulomatosis with polyangiitis: History granulomatosis with polyangiitis, History sarcoidosis Continue Imuran and Bactrim mon, wed, fri As cardiac workup is negative and D dimer negative, outpatient pulm workup is considered, however, patient is improved. (6) GARDENIA (obstructive sleep apnea): CPAP with 2L O2 HS (7) Depression with anxiety: Continue sertraline per home regimen. (8) DVT prophylaxis: heparin drip changed to Lovenox Full Code Dispo-to home Total Time Total Time Spent Total Time Spent (In Minutes): 60 Discharge Plan Discharge Items Patient Disposition: Home - Self-Care Reason For Visit: SOB Discharge Diagnosis: Atypical chest pain Dyspnea on exertion Nonsustained ventricular tachycardia Nonischemic cardiomyopathy Hypertension DMII Granulomatosis with polyangiitis Activity: Resume your previous activity Non-emergency contact: Primary Care Provider Call non-emergency contact if: you have any medication questions, your symptoms worsen and your pain is not controlled Follow-up/Referrals: Tan Dhaliwal MD [Primary Care Provider] - (Date & Time 02/15/2021 11:20 AM Provider Tan Dhaliwal MD Department General Internal Medicine [facility] ) Janet Balderas PA-C [Physician Filter Press Tender Head] - (Date & Time 03/09/2021 3:00 PM Provider Janet Balderas PA-C Department Cardiology, [facility] ) Diet: Regular Addtl Attending Provider Instructions: Please take all medications as instructed on discharge list below. Please note, atorvastatin has been added to your regimen to take once daily. Please do not restart torsemide until 02/10 as you have had intravenous contrast. Please consider a referral to [facility] pulmonary for possible sarcoid/occult interstitial lung disease work-up, complete pulmonary function test, and cardiopulmonary stress test. It is recommended that you follow-up with your primary care doctor within 1 week of discharge to discuss the medication changes, implement referrals as needed and monitor your symptoms. It was a pleasure taking care of you! Please call if you have any questions or problems. You can reach a [facility] hospitalist on duty at [facility] 24 hours a day by calling [phone]. Take care of yourself. Maggie Weinstein, [facility] Pending Studies at Discharge: No Stand-Alone Forms: My [facility] Medications and DC Order Prescriptions: New atorvastatin 10 mg Tablet 10 mg PO QAM Qty: 30 RF: 0 Continued carvedilol 25 mg tablet 25 mg PO BID RF: 0 sertraline 100 mg tablet 200 mg PO DAILY RF: 0 azathioprine 50 mg tablet 50 mg PO BID RF: 0 sulfamethoxazole-trimethoprim 800-160 mg tablet 1 tab PO [id number] RF: 0 hydralazine 50 mg tablet 50 mg PO TID RF: 0 lorazepam 1 mg tablet 1 mg PO DAILY PRN (Reason: Anxiety) RF: 0 nitroglycerin [Nitrostat] 0.4 mg Tablet, Sublingual 0.4 mg Sublingual DIRECTED PRN (Reason: Chest Pain) RF: 0 meclizine 12.5 mg Tablet 12.5 mg PO BID PRN (Reason: Vertigo) RF: 0 aspirin 81 mg Tablet,Delayed Release (Dr/Ec) 81 mg PO QPM RF: 0 omeprazole 20 mg Capsule,Delayed Release(Dr/Ec) 20 mg PO BID RF: 0 torsemide 20 mg tablet 20 mg PO DAILY RF: 0 nitroglycerin 0.2 mg/hr Patch 24 Hour 1 patch TRANSDERMAL DAILY RF: 0 Novolin 70/30 U-100 Insulin 100 unit/mL (70-30) suspension 44 unit SUBCUT .QSUPPER RF: 0 Novolin 70/30 U-100 Insulin 100 unit/mL (70-30) suspension 50 unit SUBCUT QAM RF: 0 buspirone 15 mg tablet 15 mg PO DAILY PRN (Reason: Anxiety) RF: 0 Discharge Orders: Discharge Order (Routine); Ordered 12/10/21 Ordered By: Maggie Weinstein Admission Data Admit Date/Time: 02/07/21 19:37 Attending Provider: Maggie Weinstein Admit Provider: Aquilino Orozco Primary Care Provider: Tan Dhaliwal Other Providers: Reji Denis ; Sanjiv Mccartney Other Interventions: Discharge Summary Assessment (RN) Last Done: 02/09/21 14:09
[2021-02-09] MEDS ORDERED: SULFAMETHOXAZOLE/TRIMETHOPRIM DS 800/160MG TAB PO SCH (21:00)
== END 2021-02-09 14:24 | disposition home or self-care (01) | DRG 287 ==
LOC: ED 17:02 → SUATTDRO 19:37 → EDINP 19:37 → 2N 20:45 → 1E 02-08 15:50
DX: M31.30 Wegener's granulomatosis without renal involvement; G47.33 Obstructive sleep apnea (adult) (pediatric); I47.2 Ventricular tachycardia; E87.6 Hypokalemia; Z79.82 Long term (current) use of aspirin; R07.89 Other chest pain; D86.9 Sarcoidosis, unspecified; E11.9 Type 2 diabetes mellitus without complications; I13.0 Hypertensive heart and chronic kidney disease with heart failure and stage 1 through stage 4 chronic kidney disease, or unspecified chronic kidney disease; I50.22 Chronic systolic (congestive) heart failure; Z79.4 Long term (current) use of insulin; T44.6X5A Adverse effect of alpha-adrenoreceptor antagonists, initial encounter; Y92.239 Unspecified place in hospital as the place of occurrence of the external cause; I42.8 Other cardiomyopathies; R06.09 Other forms of dyspnea; N18.30 Chronic kidney disease, stage 3 unspecified; Z95.810 Presence of automatic (implantable) cardiac defibrillator